=== PATIENT | female | born 1940 | race Caucasian/White ===

== ENCOUNTER 2018-08-30 08:37 | Inpatient (IN) | payer MEDICARE, MEDICAID ==
[2018-08-30 09:23] LABS: #Eosinphils 0.8 thou/uL (0.0-0.7); #Lymphocytes 2.1 thou/uL (1.20-3.40); #Neutrophils 7.7 thou/uL (1.40-6.50); %Basophils 0.3 % (0.0-1.0); %Monocytes 8.6 % (0.0-10.0); %Neutrophils 66.1 % (42.0-75.0); Hemoglobin 10.1 g/dL (12.0-16.0); Mean Corpuscular HGB CONC 33.9 g/dL (32.0-36.0); Mean Corpuscular Hemoglobin 30.8 pg (27.0-31.0); Mean Corpuscular Volume 90.7 fL (78.0-98.0); Mean Platelet Volume 6.3 fL (7.4-10.4); Platelet Count 272 thou/uL (130-400); RBC Distribution Width 11.9 % (11.5-14.5); Red Blood Cell (RBC) Count 3.27 mill/uL (4.20-5.40); White Blood Cell (WBC) Count 11.6 thou/uL (4.8-10.8)
[2018-08-30 09:43] LABS: ALT (SGPT) 12 U/L (8-55); AST (SGOT) 19 U/L (5-34); Albumin 3.7 g/dL (3.4-4.8); Alkaline Phosphatase 37 U/L (40-150); Anion Gap 18 mmol/L (10-20); BUN (Urea Nitrogen) 82 mg/dL (9.8-20.1); Bilirubin, Total 0.5 mg/dL (0.2-1.2); Calc. Creatinine Clearance 0 mL/min (70-130); Calcium 9.6 mg/dL (7.8-10.44); Carbon Dioxide 20 mmol/L (23-31); Chloride 106 mmol/L (98-107); Estimated GFR-MDRD 5; Globulin 3.8 g/dL (2.4-3.5); Glucose 94 mg/dL (83-110); Potassium 4.9 mmol/L (3.5-5.1); Protein, Total 7.5 g/dL (6.0-8.3); Sodium 139 mmol/L (136-145)
[2018-08-30] MEDS ORDERED: hydrALAZINE 20 MG/ML VIAL SLOW IVP PRN (11:07)
[2018-08-30] MEDS ORDERED: Acetaminophen 325 MG TAB PO PRN (11:07)
--- NOTE | 2018-08-30 11:34 | PDOC.FPRHP ---
- History of Present Illness Chief Complaint: needs shunt History of Present Illness: Patient was sent to the ED by Dr. Ponce to setup Shunt placement and initiation of hemodialyis. Patient had a L kidney which never adequately developed or functioned and was removed around age 37. Patient has reflux affecting the R kidney which eventually led to failure. Dr. ponce has been discussing dialysis with the patient for some time and she now decided she is ready to initiate. She is not intereted in peritoneal dialysis at this time. Patient denies recent illnesses. Denies fevers, chills, or sweats. No sob or cough. Patient states she has occasional malaise. She complains of mild L flank pain going on for a few days. Somewhat worse with movement, pain comes and goes. ED Course: Danish and Kris were contacted from the ED Dr. Danish balderas for shunt placement, venous mapping ordered - Allergies/Adverse Reactions Allergies Allergy/AdvReac Type Severity Reaction Status Date / Time shellfish derived Allergy Intermediate Short of Verified 08/30/18 16:54 Breath Iodine and Iodide Containing Allergy Short of Verified 08/30/18 16:54 Produc Breath - Home Medications Medication Instructions Recorded Confirmed Type Anastrozole [Arimidex] 1 mg PO DAILY 05/29/14 08/30/18 History Aspirin [Aspirin EC] 81 mg PO DAILY 05/29/14 08/30/18 History Esomeprazole Magnesium [NexIUM 20 mg PO DAILY 05/29/14 08/30/18 History 24Hr] Amlodipine [Norvasc] 10 mg PO DAILY 08/30/18 08/30/18 History Cyanocobalamin (Vitamin B-12) 1,000 mcg PO DAILY 08/30/18 08/30/18 History [B-12] Cyclobenzaprine HCl 5 mg PO PRN PRN 08/30/18 08/30/18 History Fenofibrate 150 mg PO DAILY 08/30/18 08/30/18 History Ferrous Gluconate [Iron] 240 mg PO DAILY 08/30/18 08/30/18 History Furosemide [Lasix] 20 mg PO DAILY 08/30/18 08/30/18 History Multivit-Min/Folic Acid/Vit K1 1 each PO DAILY 08/30/18 08/30/18 History [Multi For Her 50 Plus Softgel] Pravastatin Sodium 40 mg PO HS 08/30/18 08/30/18 History - History PMHx: hld, htn, breast cancer s/p chemo and mastectomy 2012, L kidney never developed PSHx: appy, mara, hyst, tonsillectomy, distant cath, L nephrectomy at age 37 FHx: DM, CHF, CVA Social: no smoking, alcohol, or drugs - Review of Systems General: denies: fever/chills, night sweats, fatigue ENT: denies: nasal congestion Respiratory: denies: cough, congestion, shortness of breath Cardiovascular: denies: chest pain, palpitation, edema Gastrointestinal: denies: nausea, vomiting, diarrhea, constipation, abdominal pain, GI bleeding Genitourinary: denies: dysuria, polyuria Skin: denies: rashes, itching Musculoskeletal: reports: other (no CVA tenderness, no pain with turning over in the bed). denies: pain Neurological: denies: numbness, seizure Psychological: denies: anxiety, depression - Vital signs BP: 170/85 HR: 93 RR: 15 Tmax: 98.0 Pox: 96% on RA Wt: 48 kg - Physical Exam Constitutional: NAD, awake, alert and oriented HEENT: normocephalic and atraumatic, EOMI Neck: supple Heart: RRR, normal S1/S2, no murmurs/rubs/gallops Lungs: CTAB, no respiratory distress, good air movement Abdomen: soft, non-tender, bowel sounds present Musculoskeletal: normal structure -Musculoskeletal: no CVA tenderness, no pain with moving L and R in the bed Neurological: no focal deficit, CN II-XII intact Skin: no rash/lesions, capillary refill <2 seconds FMR H&P: Results - Labs Result Diagrams: 08/30/18 09:15 08/30/18 09:15 Lab results: WBC 11.6 thou/uL (4.8-10.8) H 08/30/18 09:15 Hgb 10.1 g/dL (12.0-16.0) L 08/30/18 09:15 Hct 29.7 % (36.0-47.0) L 08/30/18 09:15 MCV 90.7 fL (78.0-98.0) 08/30/18 09:15 Plt Count 272 thou/uL (130-400) 08/30/18 09:15 Neutrophils % 66.1 % (42.0-75.0) 08/30/18 09:15 Sodium 139 mmol/L (136-145) 08/30/18 09:15 Potassium 4.9 mmol/L (3.5-5.1) 08/30/18 09:15 Chloride 106 mmol/L (98-107) 08/30/18 09:15 Carbon Dioxide 20 mmol/L (23-31) L 08/30/18 09:15 BUN 82 mg/dL (9.8-20.1) H 08/30/18 09:15 Creatinine 7.91 mg/dL (0.6-1.1) H 08/30/18 09:15 Glucose 94 mg/dL (83-110) 08/30/18 09:15 Calcium 9.6 mg/dL (7.8-10.44) 08/30/18 09:15 Total Bilirubin 0.5 mg/dL (0.2-1.2) 08/30/18 09:15 AST 19 U/L (5-34) 08/30/18 09:15 ALT 12 U/L (8-55) 08/30/18 09:15 Alkaline Phosphatase 37 U/L (40-150) L 08/30/18 09:15 Serum Total Protein 7.5 g/dL (6.0-8.3) 08/30/18 09:15 Albumin 3.7 g/dL (3.4-4.8) 08/30/18 09:15 FMR H&P: A/P - Problem List (1) ESRD (end stage renal disease) Current Visit: Yes Status: Acute Code(s): N18.6 - END STAGE RENAL DISEASE (2) HLD (hyperlipidemia) Current Visit: Yes Status: Acute Code(s): E78.5 - HYPERLIPIDEMIA, UNSPECIFIED (3) HTN (hypertension) Current Visit: Yes Status: Acute Code(s): I10 - ESSENTIAL (PRIMARY) HYPERTENSION (4) HX: breast cancer Current Visit: Yes Status: Acute Code(s): Z85.3 - PERSONAL HISTORY OF MALIGNANT NEOPLASM OF BREAST (5) History of nephrectomy, left Current Visit: Yes Status: Acute Code(s): Z90.5 - ACQUIRED ABSENCE OF KIDNEY (6) Hx of coronary artery disease Current Visit: Yes Status: Acute Code(s): Z86.79 - PERSONAL HISTORY OF OTHER DISEASES OF THE CIRCULATORY SYSTEM - Plan This is a 77 yo F admitted for shunt placement and initiation of hemodialysis # 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 Peng consulted for shunt placement, venous mapping ordered - Cr 7.9 in the Ed - initiate hemodialysis # HTN - cont amlodipine - PRN hydralazine - start lisinopril 5mg # HLD - pravastatin, fenofibrate # Hx of dCHF not in exacerbation, POA - EF 55-60% 2013 # hx CAD # Hx breast cancer - s/p chemo, mastectomy 2011 Diet: NPO until shunt placement Fluids: tko PPx: SCDs Code: DNR/DNI FMR H&P: Upper Level - Plan Date/Time: 08/30/18 0171 I, [], have evaluated this patient and agree with findings/plan as outlined by internal corrosion specialist resident. Pertinent changes/additions are listed here. Addendum - Attending - Attending Attestation Date/Time: 08/30/18 8249 I personally evaluated the patient and discussed the management with Dr. Barclay I agree with the History, Examination, Assessment and Plan documented above with any addition or exceptions noted below.
[2018-08-30 12:20] LABS: Magnesium 2.2 mg/dL (1.6-2.6); Phosphorus 7.6 mg/dL (2.3-4.7)
--- NOTE | 2018-08-30 12:50 | ULT ---
Exam: Vein mapping for dialysis access HISTORY: End-stage renal disease. TECHNIQUE: Multiplanar grayscale and color Doppler images were obtained in a bilateral upper extremit y venous ultrasound. Spectral analysis of the Doppler waveforms of the vessels were performed. FINDINGS: The bowel internal jugular veins and subclavian veins are patent without evidence of thromb us. Right brachial artery 4.4 mm Right radial artery 2.6 mm Right ulnar artery 1.7 mm Left brachial artery 4.4 mm Left radial artery 2.2 mm Left ulnar artery 0.8 mm RIGHT CEPHALIC VEIN in millimeters 2.6 -- Shoulder 2.7 -- Upper arm 3.6 -- Mid upper arm 3.4 -- Just proximal to the elbow 1.1 -- Just distal to the elbow 1.1 -- Forearm 1.2 -- Wrist RIGHT BASILIC VEIN in millimeters 3.7 -- Shoulder 1.9 -- Upper arm 2.3 -- Mid upper arm 3.0 -- Just proximal to the elbow 1.0 -- Just distal to the elbow 1.1 -- Forearm 0.6 -- Wrist LEFT CEPHALIC VEIN in millimeters 1.0 -- Shoulder 1.6 -- Upper arm 1.4 -- Mid upper arm 1.9 -- Just proximal to the elbow 1.3 -- Just distal to the elbow 1.1 -- Forearm 0.8 -- Wrist LEFT BASILIC VEIN in millimeters 2.1 -- Shoulder 1.2 -- Upper arm 1.6 -- Mid upper arm 1.2 -- Just proximal to the elbow 0.9 -- Just distal to the elbow 1.0 -- Forearm 0.6 -- Wrist IMPRESSION: Vein mapping for dialysis access as above
[2018-08-30] MEDS ORDERED: Tuberculin PPD 0.1 ML VIAL I-DERMAL SCH (13:00)
[2018-08-30 13:20] LABS: Hep B Core Total Ab Non-Reactive (NonReactive); Hep B Core Total Index 0.45 S/CO (0-0.79)
[2018-08-30 13:21] LABS: HBSAg Index 0.31 S/CO (0-0.99); Hep B Surf Ag Non-Reactive S/CO (NonReactive)
[2018-08-30 13:22] LABS: HBSAB Concentration 0.67 mIU/mL; Hep B Surf AB Non-Reactive (NonReactive)
[2018-08-30 13:23] LABS: Hep C IgG Ab Non-Reactive (NonReactive); Hep C Index 0.07 S/CO (0-0.79)
--- NOTE | 2018-08-30 16:09 | CON ---
DATE OF CONSULTATION: HISTORY OF PRESENT ILLNESS: Ms. 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 The patient has been having decreased appetite and decreased energy level. She has been advised to initiate dialysis several months ago, but has declined due to personal reasons. She is taking care of her , who is quite sick. We are being consulted for initiation of dialysis. We have already consulted Surgery for placement of a cuffed hemodialysis catheter as well as AV fistula. REVIEW OF SYSTEMS: Decreased appetite. Decreased energy level. Occasional nausea, but no vomiting. No diarrhea. No constipation. No productive cough. No fever or chills. No headache. No diplopia. Appetite is decreased. Energy level is decreased. No hematochezia. No melena. No tremors. MEDICATIONS: 1. Arimidex 1 mg daily. 2. Aspirin 81 mg tablet once a day. 3. Esomeprazole 20 mg daily. 4. Amlodipine 10 mg tablet daily. 5. Fenofibrate 150 mg daily. 6. Ferrous gluconate 240 mg once a day. 7. Pravastatin 40 mg tablet at bedtime. PAST MEDICAL HISTORY: 1. Breast cancer in remission. 2. 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 3. Hypertension. 4. Hyperlipidemia. 5. Chronic anemia. PAST SURGICAL HISTORY: Status post mastectomy, status post breast biopsy, status post left nephrectomy, status post tonsillectomy, status post appendectomy, status post hysterectomy, and status post cholecystectomy. SOCIAL HISTORY: The patient lives in [place]. , several children. No smoking. No alcohol intake. Sedentary lifestyle. Education, high school. No blood transfusion. ALLERGIES: NO KNOWN DRUG ALLERGIES. TRAUMA: None. IMMUNIZATION: Up-to-date. HOSPITALIZATIONS: Please see past medical history. FAMILY HISTORY: No family history of ESRD. PHYSICAL EXAMINATION: VITAL SIGNS: Blood pressure is noted at 170/85, heart rate 93, respiratory rate 15, T-max 98, and pulse ox 98%. GENERAL: Noted to be awake, alert, and comfortable, not in distress. The patient is obese. SKIN: Adequate turgor. HEENT: Slightly pale conjunctivae. Anicteric sclerae. NECK: No neck mass. No carotid bruits. No JVD. CHEST: No deformities. LUNGS: Clear breath sounds. No wheezing. No crackles. HEART: Normal sinus rhythm. No murmurs. No gallops. No rubs. ABDOMEN: Globular, soft, and nontender. No masses. EXTREMITIES: No edema. No deformities. NEUROLOGIC: Moving all extremities. No tremors or asterixis. No ataxia. Oriented to 3 spheres. LABORATORY DATA: Laboratories of August 30, 2018; sodium 139, potassium 4.9, chloride 106, carbon dioxide 20, BUN 82, and creatinine 7.91. White count 11.6, hemoglobin 10.1, and hematocrit 29.7. The patient's GFR is noted at 5 mL/minute. Albumin is 3.7. ASSESSMENT AND PLAN: 1. 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 GFR has dropped down to 6 mL/minute. I feel that this patient may be uremic. We will initiate hemodialysis. Surgical consult has been done with Dr. Peng for a cuffed hemodialysis catheter placement as well as AV fistula placement. Once the dialysis access is in place, we will initiate 1 hour hemodialysis today with this patient with subsequent daily dialysis with incremental increase in time by 1 hour until we reach 4 hours and then we will place her on 3 times a week dialysis. 2. Hypertension. Continue current BP medications. Adjust BP medications as needed. Thank you for the consult. We will continue to follow. Job ID: [id number]
[2018-08-30] MEDS ORDERED: CEFAZOLIN 2 GM in Premix Bag 1 BAG IVPB SCH (16:15)
--- NOTE | 2018-08-30 16:29 | PDOC.EVN ---
Event Note - Event Note Event Note: Patient states she had a heart cath in the last year with Dr. Dee but there are no records in [facility]
[2018-08-30 16:49] VITALS: BMI 31.2
--- NOTE | 2018-08-30 17:22 | HP ---
HISTORY OF PRESENT ILLNESS: A 77-year-old female, who has been followed by Dr. Ponce for some time for chronic kidney disease. She is status post left nephrectomy almost 40 years ago, atrophic kidney. She has progressed to need dialysis. I have been asked to see her regarding dialysis access. Plan is to place a hemodialysis catheter tomorrow as well as placement of a right arm dialysis fistula. She understands risks of infection, bleeding, reoperation, consents. TOBACCO: None. ALCOHOL: Rarely. ALLERGIES: NONE. MEDICATIONS: 1. Pravastatin. 2. Norvasc. 3. Ferrous gluconate. 4. Fenofibrate. 5. Nexium. 6. Aspirin. 7. Anastrozole. PAST MEDICAL HISTORY: End-stage renal disease, status post left nephrectomy, hypertension, history of breast cancer, chemotherapy. PAST SURGICAL HISTORY: Laparoscopic cholecystectomy, appendectomy, hysterectomy, bilateral salpingo-oophorectomy, tonsillectomy, nephrectomy 40 years ago, left rotator cough, colonoscopy in 2011, right breast cancer, status post bilateral mastectomy with right node dissection, partial thyroidectomy. REVIEW OF SYSTEMS: Noncontributory. PHYSICAL EXAMINATION: HEAD, EARS, EYES, NOSE, AND THROAT: Unremarkable. LUNGS: Clear to auscultation. CARDIAC: Regular rate and rhythm without murmur or gallop. ABDOMEN: Soft and nontender. Chest wall without breast, status post bilateral mastectomies. ABDOMEN: Soft and nontender. No masses. EXTREMITIES: Palpable radial pulses. No ankle edema. LABORATORY DATA: White count 11, hemoglobin 10.1. Sodium 139, potassium 4.9, creatinine 7.91, GFR 5. Liver function tests normal. ASSESSMENT AND PLAN: End-stage renal disease, status post left nephrectomy. We will plan for right arm primary fistula. Risks and benefits discussed. Questions have been answered. Possibility of a second operation necessity pending appearance of her veins and intraoperative findings discussed, questions answered. Job ID: [id number]
[2018-08-30] MEDS: Atorvastatin Calcium 10 MG TAB PO SCH (20:09)
[2018-08-31 05:24] LABS: Anion Gap 18 mmol/L (10-20); BUN (Urea Nitrogen) 85 mg/dL (9.8-20.1); Calc. Creatinine Clearance 7 mL/min (70-130); Calcium 9.2 mg/dL (7.8-10.44); Carbon Dioxide 17 mmol/L (23-31); Chloride 107 mmol/L (98-107); Estimated GFR-MDRD 5; Glucose 89 mg/dL (83-110); Potassium 4.3 mmol/L (3.5-5.1); Sodium 138 mmol/L (136-145)
--- NOTE | 2018-08-31 07:02 | PDOC.FM ---
- Subjective Subjective: This morning patient states she is feeling well overall. Slept well, somewhat cold bc thermostat in room is not working. No N/V/D overnight. Denies pain this AM. Reviewed surgery with her and what to expect, she has no further questions. - Objective Vital Signs & Weight: Vital Signs (12 hours) Temp Pulse Resp BP Pulse Ox 08/31/18 05:15 98.8 F 91 16 139/77 95 08/31/18 00:24 98.6 F 99 16 150/75 H 94 L 08/30/18 20:50 97.9 F 93 16 157/82 H 93 L Weight Weight 74.979 kg Result Diagrams: 08/30/18 09:15 08/31/18 04:04 Phys Exam - Physical Examination Constitutional: NAD HEENT: moist MMs, sclera anicteric Neck: no nodes Respiratory: no wheezing, clear to auscultation bilateral Cardiovascular: RRR, no significant murmur Gastrointestinal: soft, non-tender, positive bowel sounds Musculoskeletal: no edema, pulses present Neurological: non-focal, moves all 4 limbs Psychiatric: normal affect, A&O x 3 Skin: no rash, cap refill <2 seconds Dx/Plan (1) ESRD (end stage renal disease) Code(s): N18.6 - END STAGE RENAL DISEASE Status: Acute (2) HLD (hyperlipidemia) Code(s): E78.5 - HYPERLIPIDEMIA, UNSPECIFIED Status: Acute (3) HTN (hypertension) Code(s): I10 - ESSENTIAL (PRIMARY) HYPERTENSION Status: Acute (4) HX: breast cancer Code(s): Z85.3 - PERSONAL HISTORY OF MALIGNANT NEOPLASM OF BREAST Status: Acute (5) History of nephrectomy, left Code(s): Z90.5 - ACQUIRED ABSENCE OF KIDNEY Status: Acute (6) Hx of coronary artery disease Code(s): Z86.79 - PERSONAL HISTORY OF OTHER DISEASES OF THE CIRCULATORY SYSTEM Status: Acute - Plan Plan: This is a 77 yo F admitted for shunt placement and initiation of hemodialysis # 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 Peng consulted for shunt placement, fistula, today - Cr 7.9 in the Ed - initiate hemodialysis # HTN - cont amlodipine - PRN hydralazine - started lisinopril 5mg - dialysis should assist with htn as well # HLD - pravastatin, fenofibrate # Hx of dCHF not in exacerbation, POA - EF 55-60% 2013 # hx CAD - Cath with Dr. Dee Jul 2018 per patient - records not availabe in [facility] # Hx breast cancer - s/p chemo, mastectomy 2011 Diet: NPO, advance after surgery Fluids: tko PPx: SCDs Code: DNR/DNI Addendum - Attending - Attending Attestation Date/Time: 08/31/18 0808 I personally evaluated the patient and discussed the management with Dr. Barclay. I agree with the History, Examination, Assessment and Plan documented above with any addition or exceptions noted below. Patient reports feeling well this morning, awaiting surgery sometime today. She is going for catheter placement and AV fistula formation. Will initiate HD after those procedures. Labs stable. Further mgmt per Nephro recs. Will need CM on board for outpatient HD placement.
--- NOTE | 2018-08-31 09:26 | PRG ---
DATE OF SERVICE: 08/31/2018 SERVICE: Renal Medicine SUBJECTIVE: Ms. 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 Surgery has been consulted. The plan is to place AV fistula and cuffed dialysis catheter today. My plan is to dialyze her after placement of the dialysis catheter. Currently, no new complaints. No chest pain or shortness of breath. OBJECTIVE: VITAL SIGNS: Blood pressure 149/75, heart rate 94, respiratory rate 18, and temperature 98.3. GENERAL: Awake, alert, comfortable, not in overt distress. SKIN: Adequate turgor. HEENT: Slightly pale conjunctivae. Anicteric sclerae. NECK: NO neck mass. No carotid bruits. No JVD. CHEST: No deformities. LUNGS: Clear breath sounds. No wheezing. No crackles. HEART: Normal sinus rhythm. No murmur. No gallops. No rubs. ABDOMEN: Globular, soft, and nontender. No masses. EXTREMITIES: No edema. No deformities. MEDICATIONS: Medications of August 31, 2018, was reviewed. LABORATORY DATA: Laboratories of August 31, 2018; sodium 138, potassium 4.3, chloride 107, carbon dioxide 17, BUN 85, creatinine 7.73, GFR 5 mL/minute, calcium 9.2, phosphorus is 7.6, and magnesium is 2.2. Hemoglobin 10.1. ASSESSMENT AND PLAN: 1. Chronic renal failure/end-stage renal disease - we will initiate dialysis once the hemodialysis catheter is placed. As previously mentioned, we will do a daily dialysis with this patient. 2. Hyperphosphatemia - I will start this patient on Renvela 800 mg one tab t.i.d. 3. Hypertension, stable. Continue current antihypertensive regimen. Agree with current management. Job ID: [id number]
[2018-08-31] MEDS: Anastrozole 1 MG TAB PO SCH (10:04)
[2018-08-31] MEDS: Amlodipine 10 MG TAB PO SCH (10:04)
[2018-08-31] MEDS: Aspirin 81 mg Enteric Coated Tablet PO SCH (10:04)
[2018-08-31] MEDS: Fenofibrate Nanocrystallized 145 MG TAB PO SCH (10:05)
[2018-08-31] MEDS: Ferrous Gluconate 324 MG TAB PO SCH (10:05)
[2018-08-31] MEDS: Lisinopril 5 MG TAB PO SCH (10:05)
[2018-08-31] MEDS ORDERED: Heparin 10,000 UNITS/ 10 ML VIAL ONE ×2 (11:11→16:20)
[2018-08-31] MEDS ORDERED: Heparin 5,000 UNITS/ML VIAL ONE (11:14)
[2018-08-31] MEDS ORDERED: Lidocaine 2% PF 5 ML VIAL ONE (11:14)
[2018-08-31] MEDS ORDERED: Protamine Sulfate 50 MG/5 ML VIAL ONE (11:14)
[2018-08-31] MEDS ORDERED: Bupivacaine HCl 0.5%/Epinephrine 1:200,000/PF 30 ml Vial ONE ×2 (11:14→16:06)
[2018-08-31] MEDS ORDERED: Sodium Chloride 0.9% 30 ML ONE (11:19)
[2018-08-31] MEDS ORDERED: Heparin 10,000 UNITS/1 ML VIAL ONE (11:19)
[2018-08-31] MEDS ORDERED: Fentanyl 100 MCG/2 ML VIAL ONE (11:40)
[2018-08-31] MEDS ORDERED: Midazolam HCl 2 mg/2 ml Vial ONE (11:40)
[2018-08-31] MEDS ORDERED: Meperidine HCl/PF 25 MG/ML VIAL ONE (12:09)
[2018-08-31] MEDS ORDERED: traMADol HCl 50 MG TAB PO PRN (13:52)
[2018-08-31] MEDS ORDERED: Acetaminophen 500 MG TAB PO PRN (13:52)
--- NOTE | 2018-08-31 14:20 | RAD ---
CHEST 1 VIEW: COMPARISON: 05/29/2014. HISTORY: Presumed dialysis catheter placement. FINDINGS: Atherosclerosis of the aorta. Normal cardiac silhouette. The pulmonary vessels and hilum are normal . Costophrenic angles are clear. Diminished lung volumes, without consolidation or mass. No pneumot horax or osseous abnormalities. Interval placement of right-sided HemoSplit dialysis catheter with the distal tip projecting over the superior vena cava. IMPRESSION: Interval placement of a right-sided HemoSplit dialysis catheter. No pneumothorax. POS: [facility]
--- NOTE | 2018-08-31 14:54 | OP ---
DATE OF PROCEDURE: 08/31/2018 PREOPERATIVE DIAGNOSES: Obesity, end-stage renal disease. POSTOPERATIVE DIAGNOSES: Obesity, end-stage renal disease. PROCEDURES PERFORMED: Right internal jugular cuffed tunneled hemodialysis catheter, ultrasound and fluoroscopy use, and exploration of the right wrist. FINDINGS: The cephalic vein inadequate, wound closed. Primary AV fistula, right arm. Proximal radial artery inflow-outflow through the perforating branch of the antecubital vein, primary to the cephalic vein, secondary to basilic vein with retrograde antecubital vein preserved. The cephalic vein outflow, upper arm calibrated to 4 mm coronary dilator passing without obstruction. ANESTHESIA: TIVA, local of 0.5% Marcaine with epinephrine 30 mL mixed with 2% Xylocaine 10 mL, regional, right arm. DESCRIPTION OF PROCEDURE: The patient was taken to the operating room, where under regional anesthesia and intravenous sedation, neck, chest, and right arm prepared with ChloraPrep and draped in routine fashion. Ultrasound guidance was used to cannulate the right internal jugular vein with trocar catheter, J-wire threaded, trocar catheter removed. Skin site was enlarged sharply. Stab incision over the right chest made for the exit site catheter, and a pre-curved [employer] cuffed-tunneled hemodialysis catheter tunneled between 2 incisions, placed the fabric cuff beneath the skin exit site. Catheter was secured with 2 sutures of 3-0 nylon. Sterile dressing applied. Small- and medium-sized dilators were placed over the J-wire and the internal jugular vein removed. Dilator and Peel-Away sheath placed with J-wire in superior vena cava, and dilator and J-wire were removed. Catheter was placed through the Peel-Away sheath. The Peel-Away sheath removed. Platysma was approximated with 4-0 Monocryl, skin with subdermal 4-0 Monocryl and [place] glue and sterile dressings applied. Fluoroscopic images revealed the catheter to be in good position and each port aspirated blood, flushed with saline solution, and heparinized saline solution with 1000 units of heparin per mL indicating volume of the port. Incision was made in the right wrist, and cephalic vein at the wrist was inadequate. This incision closed with interrupted sutures of 4-0 Monocryl. Incision was made longitudinally in the proximal volar forearm just below the antecubital fossa, carried down to skin and subcutaneous tissue, and a good-sized antecubital vein and outflow cephalic and basilic vein appreciated. Cephalic vein was larger. Perforating branch of the antecubital vein dissected free and branches were divided between clips, spatulated, and interrogated with coronary dilators, passing coronary dilators from a 2 mm to 4 mm coronary dilator, unobstructed out of the cephalic vein outflow. The patient was given 6000 units of heparin intravenously. After adequate circulation time, the brachial, ulnar, and radial arteries clamped, and a longitudinal arteriotomy was made in the proximal radial artery for 2.5 cm anastomosis elongated with Haq scissors and vein accordingly spatulated to accommodate this, and end vein to side proximal radial artery anastomosis created with continuous suture of 6-0 Prolene, completing anastomosis and hemostasis with 6-0 Prolene, releasing vascular control, noting a good Doppler signal in the cephalic vein outflow, upper arm. Good hemostasis was noted. The patient given 25 mg of protamine intravenously by Anesthesia. Subcutaneous tissue was approximated with 3-0 Monocryl, skin with subdermal 4-0 Monocryl, and [place] glue applied. Job ID: [id number]
[2018-08-31] MEDS: Sevelamer Carbonate 800 MG TAB PO SCH ×3 (15:58→19:06)
[2018-08-31] MEDS ORDERED: Lidocaine 1% PF 5 ML VIAL ONE (16:20)
[2018-08-31] MEDS ORDERED: PROPOFOL 200 MG/20 ML VIAL ONE (16:20)
[2018-08-31] MEDS: Atorvastatin Calcium 10 MG TAB PO SCH (21:28)
[2018-09-01] MEDS: traMADol HCl 50 MG TAB PO PRN (00:49)
--- NOTE | 2018-09-01 06:30 | PDOC.FM ---
- Subjective Subjective: Patient states she is feeling well today. Did have an episode of vomiting after dialysis yesterday, did one hour. Anticipate daily dialysis for now while establishing. No other complaints. Tolerating PO, no fevers, chills, sweats, N/V /D, cough or SOB. - Objective Vital Signs & Weight: Vital Signs (12 hours) Temp Pulse Resp BP Pulse Ox 09/01/18 04:00 98.8 F 97 18 135/74 95 09/01/18 00:00 98.5 F 103 H 20 150/67 H 95 08/31/18 20:00 98.0 F 100 20 146/77 H 96 Weight Weight 74.979 kg I&O: 08/30/18 08/31/18 09/01/18 06:59 06:59 06:59 Intake Total 480 Balance 480 Result Diagrams: 08/30/18 09:15 08/31/18 04:04 Phys Exam - Physical Examination Constitutional: NAD HEENT: moist MMs, sclera anicteric Respiratory: no wheezing, clear to auscultation bilateral Cardiovascular: RRR, no significant murmur, no rub Gastrointestinal: soft, non-tender, no distention, positive bowel sounds Musculoskeletal: no edema, pulses present Neurological: non-focal, moves all 4 limbs Psychiatric: normal affect, A&O x 3 Skin: no rash, cap refill <2 seconds Deviation from normal: fistula site healing well, no sign of infxn Dx/Plan (1) ESRD (end stage renal disease) Code(s): N18.6 - END STAGE RENAL DISEASE Status: Acute (2) HLD (hyperlipidemia) Code(s): E78.5 - HYPERLIPIDEMIA, UNSPECIFIED Status: Acute (3) HTN (hypertension) Code(s): I10 - ESSENTIAL (PRIMARY) HYPERTENSION Status: Acute (4) HX: breast cancer Code(s): Z85.3 - PERSONAL HISTORY OF MALIGNANT NEOPLASM OF BREAST Status: Acute (5) History of nephrectomy, left Code(s): Z90.5 - ACQUIRED ABSENCE OF KIDNEY Status: Acute (6) Hx of coronary artery disease Code(s): Z86.79 - PERSONAL HISTORY OF OTHER DISEASES OF THE CIRCULATORY SYSTEM Status: Acute - Plan Plan: This is a 77 yo F admitted for shunt placement and initiation of hemodialysis # 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 Peng consulted for shunt placement, fistula 08/31 - Cr 7.9 in the Ed - had 1 hr dialysis yesterday, anticipate daily dialysis for now - appreciate nephro recs # HTN - cont amlodipine - PRN hydralazine - started lisinopril 5mg - dialysis should assist with htn as well, will hold off titration for now # HLD - pravastatin, fenofibrate # Hx of dCHF not in exacerbation, POA - EF 55-60% 2013 # hx CAD - Cath with Dr. Dee Jul 2018 per patient - records not availabe in [facility] # Hx breast cancer - s/p chemo, mastectomy 2011 Diet: NPO, advance after surgery Fluids: tko PPx: SCDs Code: DNR/DNI Dispo: 1-2 days pending placement, dialysis, Nephro recs Addendum - Attending - Attending Attestation Date/Time: 09/01/18 0808 I personally evaluated the patient and discussed the management with Dr. Barclay. I agree with the History, Examination, Assessment and Plan documented above with any addition or exceptions noted below. Patient overall stable. SHe underwent first HD session yesterday and reports it went well. Has some soreness from surgery yesterday that is well controlled. Continue HD per Nephro recs and work on outpatient placement.
[2018-09-01] MEDS: Sevelamer Carbonate 800 MG TAB PO SCH ×3 (09:36→18:23)
--- NOTE | 2018-09-01 09:36 | PRG ---
DATE OF SERVICE: 09/01/2018 SUBJECTIVE: Ms. Canales is a 77-year-old white female, who was initiated on hemodialysis due to progressive azotemia/uremia. She underwent a 1 hour dialysis yesterday and tolerated said treatment. She has a cuffed dialysis catheter and AV fistula placed. No other complaints today. No chest pain or shortness of breath. OBJECTIVE: VITAL SIGNS: Blood pressure 152/77, heart rate 83, respiratory rate 16, temperature 98.6, and pulse ox 98%. GENERAL: Noted to be awake, alert, supine, comfortable, not in distress. SKIN: Adequate turgor. HEENT: She has a slightly pale conjunctivae. Anicteric sclerae. NECK: No neck mass. No carotid bruits. No JVD. CHEST: No deformities. LUNGS: Clear breath sounds. HEART: Normal sinus rhythm. No murmur. No gallops. No rubs. ABDOMEN: Globular soft, nontender. No masses. EXTREMITIES: No edema. No deformities. MEDICATIONS: Medications of September 01, 2018, reviewed. LABORATORY DATA: Laboratories of August 30, 2018; white count 11.6, hemoglobin 10.1. On August 31, 2018, sodium 138, potassium 4.3, chloride 107, carbon dioxide 17, BUN 85, creatinine 7.73, calcium 9.3. ASSESSMENT AND PLAN: 1. Hyperphosphatemia-Renvela has been initiated with the patient, 800 mg one tablet t.i.d. with meals. 2. Borderline anemia. We will continue to observe. Currently, on ferrous sulfate. 3. 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 The patient is scheduled for another dialysis session today. My plan is to at least do a 2-hour dialysis with this patient. Overall, agree with current management. The patient is doing well. Job ID: [id number]
[2018-09-01] MEDS: Amlodipine 10 MG TAB PO SCH (10:58)
[2018-09-01] MEDS: Ferrous Gluconate 324 MG TAB PO SCH (10:58)
[2018-09-01] MEDS: Fenofibrate Nanocrystallized 145 MG TAB PO SCH (10:58)
[2018-09-01] MEDS: Anastrozole 1 MG TAB PO SCH (10:58)
[2018-09-01] MEDS: Aspirin 81 mg Enteric Coated Tablet PO SCH (10:58)
[2018-09-01] MEDS: Lisinopril 5 MG TAB PO SCH (10:59)
[2018-09-01] MEDS: READ PPD TEST SITE PO SCH (15:34)
--- NOTE | 2018-09-01 15:39 | PRG ---
DATE OF SERVICE: 09/01/2018 Ms. Canales is doing well after formation 08/31/2018, right arm fistula, proximal radial artery outflow, cephalic and basilic vein, cephalic primarily. She has good thrill and bruit in her fistula. Her surgical wound looks good. Her hemodialysis catheter is functioning well. I have encouraged her to use the right arm unrestricted. She should see me in my office in 2 to 3 weeks. At this point, I will see her as needed this hospitalization. Please call as necessary. Job ID: [id number]
[2018-09-01] MEDS ORDERED: Heparin 10,000 UNITS/ 10 ML VIAL ONE (18:00)
[2018-09-01] MEDS ORDERED: Calcium Carbonate 500 MG ChewTAB PO PRN (20:06)
[2018-09-01] MEDS: Atorvastatin Calcium 10 MG TAB PO SCH (20:40)
[2018-09-02] MEDS ORDERED: Calcium Carbonate 500 MG ChewTAB PO PRN (03:45)
[2018-09-02 06:34] LABS: #Eosinphils 0.5 thou/uL (0.0-0.7); #Neutrophils 7.1 thou/uL (1.40-6.50); %Basophils 0.3 % (0.0-1.0); %Eosinophils 5.2 % (0.0-10.0); %Lymphocytes 18.7 % (21.0-51.0); %Monocytes 9.3 % (0.0-10.0); %Neutrophils 66.5 % (42.0-75.0); Hemoglobin 8.8 g/dL (12.0-16.0); Mean Corpuscular HGB CONC 33.4 g/dL (32.0-36.0); Mean Corpuscular Hemoglobin 30.8 pg (27.0-31.0); Mean Corpuscular Volume 92.3 fL (78.0-98.0); Mean Platelet Volume 6.9 fL (7.4-10.4); Platelet Count 237 thou/uL (130-400); RBC Distribution Width 11.9 % (11.5-14.5); Red Blood Cell (RBC) Count 2.85 mill/uL (4.20-5.40); White Blood Cell (WBC) Count 10.6 thou/uL (4.8-10.8)
--- NOTE | 2018-09-02 06:55 | PDOC.FM ---
- Subjective Subjective: This morning patient states she is feeling well. Had mild nausea after dialysis yesterday, resolved with TUMS. Rec'd zofran as needed. Planning on 3 hours of dialysis today. Denies pain, lightheadedness, or decreased appetite. - Objective Vital Signs & Weight: Vital Signs (12 hours) Temp Pulse Resp BP Pulse Ox 09/01/18 20:00 95 09/01/18 19:14 98.2 F 89 16 153/74 H 95 Weight Weight 74.979 kg I&O: 08/31/18 09/01/18 09/02/18 06:59 06:59 06:59 Intake Total 480 600 Balance 480 600 Result Diagrams: 09/02/18 05:50 09/02/18 05:50 Phys Exam - Physical Examination Constitutional: NAD HEENT: PERRLA, moist MMs Respiratory: no wheezing, clear to auscultation bilateral Cardiovascular: RRR, no significant murmur, no rub Gastrointestinal: soft, non-tender, no distention, positive bowel sounds Musculoskeletal: no edema, pulses present Neurological: non-focal, moves all 4 limbs Psychiatric: normal affect, A&O x 3 Skin: no rash, cap refill <2 seconds Dx/Plan (1) ESRD (end stage renal disease) Code(s): N18.6 - END STAGE RENAL DISEASE Status: Acute (2) HLD (hyperlipidemia) Code(s): E78.5 - HYPERLIPIDEMIA, UNSPECIFIED Status: Acute (3) HTN (hypertension) Code(s): I10 - ESSENTIAL (PRIMARY) HYPERTENSION Status: Acute (4) HX: breast cancer Code(s): Z85.3 - PERSONAL HISTORY OF MALIGNANT NEOPLASM OF BREAST Status: Acute (5) History of nephrectomy, left Code(s): Z90.5 - ACQUIRED ABSENCE OF KIDNEY Status: Acute (6) Hx of coronary artery disease Code(s): Z86.79 - PERSONAL HISTORY OF OTHER DISEASES OF THE CIRCULATORY SYSTEM Status: Acute - Plan Plan: This is a 77 yo F admitted for shunt placement and initiation of hemodialysis # 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 Peng consulted for shunt placement, fistula 08/31 - renvela started for hyperphosphatemia - titrating up on dialysis, 3 hrs today - appreciate nephro recs # HTN - cont amlodipine, titrated up to 10mg on lisinopril - PRN hydralazine # HLD - pravastatin, fenofibrate # Hx of dCHF not in exacerbation, POA - EF 55-60% 2013 # hx CAD - Cath with Dr. Dee Jul 2018 per patient - records not availabe in [facility] # Hx breast cancer - s/p chemo, mastectomy 2011 Diet: renal Fluids: tko PPx: SCDs Code: DNR/DNI Dispo: 1-2 days pending placement, Nephro recs Addendum - Attending - Attending Attestation Date/Time: 09/02/18 6615 I personally evaluated the patient and discussed the management with Dr. Barclay. I agree with the History, Examination, Assessment and Plan documented above with any addition or exceptions noted below. Patient doing well and tolerating dialysis well. Awaiting outpatient HD set up and further nephro recs. Labs overall stable.
[2018-09-02 06:57] LABS: Anion Gap 14 mmol/L (10-20); BUN (Urea Nitrogen) 41 mg/dL (9.8-20.1); Calc. Creatinine Clearance 10 mL/min (70-130); Calcium 9.8 mg/dL (7.8-10.44); Carbon Dioxide 27 mmol/L (23-31); Chloride 101 mmol/L (98-107); Estimated GFR-MDRD 7; Glucose 92 mg/dL (83-110); Potassium 4.1 mmol/L (3.5-5.1); Sodium 138 mmol/L (136-145)
[2018-09-02] MEDS: Ferrous Gluconate 324 MG TAB PO SCH (08:42)
[2018-09-02] MEDS: Fenofibrate Nanocrystallized 145 MG TAB PO SCH (08:42)
[2018-09-02] MEDS: Sevelamer Carbonate 800 MG TAB PO SCH ×3 (08:42→17:33)
[2018-09-02] MEDS: Lisinopril 10 MG TAB PO SCH (08:42)
[2018-09-02] MEDS: Anastrozole 1 MG TAB PO SCH (08:42)
[2018-09-02] MEDS: Amlodipine 10 MG TAB PO SCH (08:42)
[2018-09-02] MEDS: Aspirin 81 mg Enteric Coated Tablet PO SCH (08:42)
[2018-09-02] MEDS ORDERED: Epoetin (ESRD) 20,000 UNITS/ML SC SCH (09:00)
--- NOTE | 2018-09-02 09:11 | PRG ---
DATE OF SERVICE: 09/02/2018 SUBJECTIVE: Ms. Canales is a 77-year-old white female with chronic renal failure, admitted for uremic signs and symptoms, and progressive azotemia. She is undergoing dialysis today. She is tolerating said treatment. No new complaints. No chest pain or shortness of breath. OBJECTIVE: VITAL SIGNS: Blood pressure 172/76, heart rate 104, respiratory rate 18, temperature 98.6, and pulse ox 93%. GENERAL: Awake, alert, comfortable, not in distress. SKIN: Adequate turgor HEENT she has slightly pale conjunctivae. Anicteric sclerae. No neck mass. No carotid bruits. No JVD. CHEST: No deformities lungs clear breath sounds heart normal sinus rhythm. No murmurs, gallops, or rubs. ABDOMEN: Globular, soft, nontender. No masses. EXTREMITIES: No edema. No deformities. MEDICATIONS: Medications of September 02, 2018, was reviewed. LABORATORY DATA: On September 02, 2018, hemoglobin 8.8. Sodium 138 potassium 4.1, chloride 101, carbon dioxide 27, BUN 41, creatinine 5.64, GFR 7 mL/minute calcium is 9.8. ASSESSMENT AND PLAN: 1. Chronic renal failure/end-stage renal disease stable we will continue current daily hemodialysis. I am doing a 3-hour hemodialysis with this patient. She is seems to be tolerating the said treatment. Fluid removal only as tolerated. 2. Anemia. We will start Epogen 7500 units subcu weekly. Continue ferrous sulfate. 3. Awaiting outpatient dialysis placement. Job ID: [id number]
[2018-09-02] MEDS ORDERED: Heparin 10,000 UNITS/ 10 ML VIAL ONE (10:00)
[2018-09-02] MEDS: Ondansetron ODT 4 MG TAB PO PRN (15:21)
[2018-09-02] MEDS: READ PPD TEST SITE PO SCH (17:33)
[2018-09-02] MEDS: Atorvastatin Calcium 10 MG TAB PO SCH (21:20)
[2018-09-02] MEDS: traMADol HCl 50 MG TAB PO PRN (21:35)
--- NOTE | 2018-09-03 05:48 | PDOC.FM ---
- Subjective Subjective: Patient feeling well this morning. Still having some nausea after dialysis. Has R arm numbness which resolves with movment. No deficit or decreased sensation. - Objective Vital Signs & Weight: Vital Signs (12 hours) Temp Pulse Resp BP Pulse Ox 09/02/18 20:00 98.4 F 93 16 155/73 H 96 Weight Weight 74.979 kg I&O: 09/01/18 09/02/18 09/03/18 06:59 06:59 06:59 Intake Total 480 600 420 Balance 480 600 420 Result Diagrams: 09/03/18 08:42 09/03/18 08:42 Phys Exam - Physical Examination Constitutional: NAD HEENT: moist MMs, sclera anicteric Respiratory: no wheezing, clear to auscultation bilateral Cardiovascular: RRR, no significant murmur, no rub Gastrointestinal: soft, non-tender, no distention, positive bowel sounds Musculoskeletal: no edema, pulses present Neurological: non-focal, moves all 4 limbs Psychiatric: normal affect, A&O x 3 Skin: no rash, cap refill <2 seconds Dx/Plan (1) ESRD (end stage renal disease) Code(s): N18.6 - END STAGE RENAL DISEASE Status: Acute (2) HLD (hyperlipidemia) Code(s): E78.5 - HYPERLIPIDEMIA, UNSPECIFIED Status: Acute (3) HTN (hypertension) Code(s): I10 - ESSENTIAL (PRIMARY) HYPERTENSION Status: Acute (4) HX: breast cancer Code(s): Z85.3 - PERSONAL HISTORY OF MALIGNANT NEOPLASM OF BREAST Status: Acute (5) History of nephrectomy, left Code(s): Z90.5 - ACQUIRED ABSENCE OF KIDNEY Status: Acute (6) Hx of coronary artery disease Code(s): Z86.79 - PERSONAL HISTORY OF OTHER DISEASES OF THE CIRCULATORY SYSTEM Status: Acute - Plan Plan: This is a 77 yo F admitted for shunt placement and initiation of hemodialysis # 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 Peng consulted for shunt placement, fistula 08/31 - renvela started for hyperphosphatemia - titrating up on dialysis, 4 hrs today - appreciate nephro recs # HTN - cont amlodipine, titrated up to 10mg on lisinopril 09/02 - PRN hydralazine # HLD - pravastatin, fenofibrate # Hx of dCHF not in exacerbation, POA - EF 55-60% 2013 # hx CAD - Cath with Dr. Dee Jul 2018 per patient - records not availabe in [facility] # Hx breast cancer - s/p chemo, mastectomy 2011 Diet: renal Fluids: tko PPx: SCDs Code: DNR/DNI Dispo: pending dialysis placement in [place] Addendum - Attending - Attending Attestation Date/Time: 09/03/18 1204 I personally evaluated the patient and discussed the management with Dr. Marty Barclay I agree with the History, Examination, Assessment and Plan documented above with any addition or exceptions noted below.
--- NOTE | 2018-09-03 08:53 | PRG ---
DATE OF SERVICE: 09/03/2018 SERVICE: Renal Medicine. SUBJECTIVE: Ms. Canales is a 77-year-old white female, who was admitted for progressive azotemia and due to uremic signs and symptoms. Hemodialysis has been initiated. She is tolerating the said dialysis regimen. I am at the bedside today supervising her dialysis. My plan is to do a 3-1/2 hour hemodialysis treatment with her. We will then place her starting next week at 3 times a week hemodialysis. In addition, in the interim, she had a right upper AV fistula placed by Dr. Peng. She has also a cuffed hemodialysis catheter. The patient voices no new complaints today. Denies any chest pain or shortness of breath. The only thing she makes mention is some mild numbness on the right hand, which is expected after placement of her AV fistula. OBJECTIVE: VITAL SIGNS: Blood pressure 122/83, heart rate 93, respiratory rate 18, temperature 98.4, and pulse ox 96%. GENERAL: Awake, alert, comfortable, not in overt distress. SKIN: Adequate turgor. HEENT: She has a slightly pale conjunctivae. Anicteric sclerae. NECK: No neck mass. No carotid bruits. No JVD. CHEST: No deformities. LUNGS: Clear breath sounds. No wheezing. No crackles. HEART: Normal sinus rhythm. No murmur. No gallops. No rubs. ABDOMEN: Globular, soft, and nontender. No masses. EXTREMITIES: No edema. No deformities. MEDICATIONS: Medications of September 03, 2018, reviewed. LABORATORY DATA: laboratories of September 02, 2018; white count 10.6, hemoglobin 8.8, hematocrit 26.4. Sodium 138, potassium 4.1, chloride 101, carbon dioxide 27, BUN 41, creatinine 5.64, glucose 92, and calcium 9.8. ASSESSMENT AND PLAN: 1. Chronic renal failure/end-stage renal disease. Hemodialysis today for 3-1/2 hours. Fluid removal as tolerated. We will plan then to place her next week at three times a week hemodialysis. Awaiting outpatient dialysis placement. 2. Anemia. We recently started her on Epogen. Continue iron supplementation. P.r.n. blood transfusion for hemoglobin of less than 7. We will be rechecking a CBC and basic metabolic panel today. Overall, agree with current management. Job ID: [id number]
[2018-09-03] MEDS: Sevelamer Carbonate 800 MG TAB PO SCH ×3 (10:15→17:38)
[2018-09-03 11:37] LABS: #Basophils 0.1 thou/uL (0.0-0.2); #Eosinphils 0.5 thou/uL (0.0-0.7); #Lymphocytes 1.7 thou/uL (1.20-3.40); #Neutrophils 12.2 thou/uL (1.40-6.50); %Basophils 0.4 % (0.0-1.0); %Eosinophils 3.4 % (0.0-10.0); %Lymphocytes 11.1 % (21.0-51.0); %Monocytes 6.4 % (0.0-10.0); %Neutrophils 78.8 % (42.0-75.0); Hemoglobin 8.7 g/dL (12.0-16.0); Mean Corpuscular HGB CONC 33.4 g/dL (32.0-36.0); Mean Corpuscular Hemoglobin 30.9 pg (27.0-31.0); Mean Corpuscular Volume 92.4 fL (78.0-98.0); Mean Platelet Volume 7.1 fL (7.4-10.4); Platelet Count 233 thou/uL (130-400); RBC Distribution Width 12.1 % (11.5-14.5); White Blood Cell (WBC) Count 15.5 thou/uL (4.8-10.8)
[2018-09-03 11:58] LABS: BUN (Urea Nitrogen) 28 mg/dL (9.8-20.1); Calc. Creatinine Clearance 11 mL/min (70-130); Calcium 9.2 mg/dL (7.8-10.44); Carbon Dioxide 28 mmol/L (23-31); Chloride 98 mmol/L (98-107); Estimated GFR-MDRD 9; Glucose 101 mg/dL (83-110); Potassium 3.4 mmol/L (3.5-5.1); Sodium 136 mmol/L (136-145)
[2018-09-03 12:00] LABS: Anion Gap 13 mmol/L (10-20)
[2018-09-03] MEDS: Anastrozole 1 MG TAB PO SCH (13:05)
[2018-09-03] MEDS: Ferrous Gluconate 324 MG TAB PO SCH (13:05)
[2018-09-03] MEDS: Fenofibrate Nanocrystallized 145 MG TAB PO SCH (13:05)
[2018-09-03] MEDS: Lisinopril 10 MG TAB PO SCH (13:05)
[2018-09-03] MEDS: Aspirin 81 mg Enteric Coated Tablet PO SCH (13:06)
[2018-09-03] MEDS: Amlodipine 10 MG TAB PO SCH (13:06)
[2018-09-03] MEDS ORDERED: Heparin 10,000 UNITS/ 10 ML VIAL ONE (18:00)
[2018-09-03] MEDS: Atorvastatin Calcium 10 MG TAB PO SCH (20:53)
[2018-09-03] MEDS: traMADol HCl 50 MG TAB PO PRN (21:00)
--- NOTE | 2018-09-03 21:46 | EKG ---
Test Reason : Blood Pressure : / mmHG Vent. Rate : 088 BPM Atrial Rate : 088 BPM P-R Int : 174 ms QRS Dur : 076 ms QT Int : 386 ms P-R-T Axes : 015 030 054 degrees QTc Int : 467 ms Normal sinus rhythm Normal ECG Confirmed by MARILYN WHITE ([id number]), photography editor LUIS DAMON ([id number]) on 09/03/2018 9:46:18 PM Referred By: Confirmed By:MARILYN WHITE
--- NOTE | 2018-09-04 07:22 | PDOC.FM ---
- Subjective Subjective: This moring patient states she is feeling well. She slept well overnight, no sob or cough. She states jacquelin is helping quite a bit with nausea related to dialysis. Tolerated 3.5 hours yesterday without issues. She is still having numbness and tingling in the right arm which comes and goes. NO pain, weakness, or difference in sensation as compared to the L. - Objective Vital Signs & Weight: Vital Signs (12 hours) Pulse Ox 09/03/18 19:41 93 L Weight Weight 74.979 kg I&O: 09/03/18 09/04/18 09/05/18 06:59 06:59 06:59 Intake Total 420 490 Balance 420 490 Result Diagrams: 09/03/18 08:42 09/03/18 08:42 Phys Exam - Physical Examination Constitutional: NAD HEENT: moist MMs, sclera anicteric Respiratory: no wheezing, clear to auscultation bilateral Cardiovascular: RRR, no significant murmur Gastrointestinal: soft, non-tender, no distention, positive bowel sounds Musculoskeletal: no edema, pulses present Neurological: non-focal, moves all 4 limbs Psychiatric: normal affect, A&O x 3 Skin: no rash, cap refill <2 seconds Dx/Plan (1) ESRD (end stage renal disease) Code(s): N18.6 - END STAGE RENAL DISEASE Status: Acute (2) HLD (hyperlipidemia) Code(s): E78.5 - HYPERLIPIDEMIA, UNSPECIFIED Status: Acute (3) HTN (hypertension) Code(s): I10 - ESSENTIAL (PRIMARY) HYPERTENSION Status: Acute (4) HX: breast cancer Code(s): Z85.3 - PERSONAL HISTORY OF MALIGNANT NEOPLASM OF BREAST Status: Acute (5) History of nephrectomy, left Code(s): Z90.5 - ACQUIRED ABSENCE OF KIDNEY Status: Acute (6) Hx of coronary artery disease Code(s): Z86.79 - PERSONAL HISTORY OF OTHER DISEASES OF THE CIRCULATORY SYSTEM Status: Acute - Plan Plan: This is a 77 yo F admitted for shunt placement and initiation of hemodialysis # 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 Peng consulted for shunt placement, fistula 08/31 - renvela started for hyperphosphatemia - titrating up on dialysis - appreciate nephro recs # HTN - cont amlodipine, titrated up to 10mg on lisinopril 09/02 - PRN hydralazine - BP WNL this AM # HLD - pravastatin, fenofibrate # Hx of dCHF not in exacerbation, POA - EF 55-60% 2013 # hx CAD - Cath with Dr. Dee Jul 2018 per patient - records not availabe in [facility] # Hx breast cancer - s/p chemo, mastectomy 2011 Diet: renal Fluids: tko PPx: SCDs Code: DNR/DNI Dispo: pending dialysis placement in [place] [facility] Progress Note: A/P - Problems (1) ESRD (end stage renal disease) Current Visit: Yes Status: Acute Code(s): N18.6 - END STAGE RENAL DISEASE (2) HLD (hyperlipidemia) Current Visit: Yes Status: Acute Code(s): E78.5 - HYPERLIPIDEMIA, UNSPECIFIED (3) HTN (hypertension) Current Visit: Yes Status: Acute Code(s): I10 - ESSENTIAL (PRIMARY) HYPERTENSION (4) HX: breast cancer Current Visit: Yes Status: Acute Code(s): Z85.3 - PERSONAL HISTORY OF MALIGNANT NEOPLASM OF BREAST (5) History of nephrectomy, left Current Visit: Yes Status: Acute Code(s): Z90.5 - ACQUIRED ABSENCE OF KIDNEY (6) Hx of coronary artery disease Current Visit: Yes Status: Acute Code(s): Z86.79 - PERSONAL HISTORY OF OTHER DISEASES OF THE CIRCULATORY SYSTEM Addendum - Attending - Attending Attestation Date/Time: 09/04/18 1501 I personally evaluated the patient and discussed the management with Dr. Karon Barclay I agree with the History, Examination, Assessment and Plan documented above with any addition or exceptions noted below. Awaiting Dialysis chair placement.
[2018-09-04] MEDS: Anastrozole 1 MG TAB PO SCH (07:37)
[2018-09-04] MEDS: Aspirin 81 mg Enteric Coated Tablet PO SCH (07:38)
[2018-09-04] MEDS: Sevelamer Carbonate 800 MG TAB PO SCH ×3 (07:38→17:13)
[2018-09-04] MEDS: Fenofibrate Nanocrystallized 145 MG TAB PO SCH (07:38)
[2018-09-04] MEDS: Lisinopril 10 MG TAB PO SCH (07:38)
[2018-09-04] MEDS: Ferrous Gluconate 324 MG TAB PO SCH (07:39)
[2018-09-04] MEDS: Amlodipine 10 MG TAB PO SCH (07:39)
--- NOTE | 2018-09-04 13:32 | PRG ---
DATE OF SERVICE: Rita Canales is doing well after right arm fistula. She has a small hematoma as it is common after this operation. No surgical intervention is warranted. She complains of intermittent paresthesias of her fingertips. She has good hand strength, good mobility of her hand. Her fingers are warm. There is good thrill and bruit in her fistula. At present, there is no indication for any complications. Gabapentin could be used. The paresthesias will resolve with time. The fact that they are intermitted is very encouraging. There is no evidence of . The patient should exercise the right arm, use it without restriction and follow up in my office in 2 to 3 weeks. Job ID: [id number]
[2018-09-04] MEDS: Atorvastatin Calcium 10 MG TAB PO SCH (20:30)
--- NOTE | 2018-09-05 08:24 | PDOC.FM ---
- Subjective Subjective: This morning patient states her R arm pain is somewhat improved. Gets better with movement. She feels some nausea this AM but was still able to eat most of her breakfast. Otherwise she is feeling well. - Objective Vital Signs & Weight: Vital Signs (12 hours) Temp Pulse Resp BP Pulse Ox 09/05/18 07:32 98.2 F 99 20 144/73 H 94 L Weight Weight 74.979 kg I&O: 09/04/18 09/05/18 09/06/18 06:59 06:59 06:59 Intake Total 490 490 Balance 490 490 Result Diagrams: 09/03/18 08:42 09/03/18 08:42 Phys Exam - Physical Examination Constitutional: NAD HEENT: moist MMs, sclera anicteric Respiratory: no wheezing, clear to auscultation bilateral Cardiovascular: RRR, no significant murmur Gastrointestinal: soft, non-tender, no distention, positive bowel sounds Musculoskeletal: no edema, pulses present Neurological: non-focal, normal sensation, moves all 4 limbs Psychiatric: normal affect, A&O x 3 Skin: no rash, cap refill <2 seconds Dx/Plan (1) ESRD (end stage renal disease) Code(s): N18.6 - END STAGE RENAL DISEASE Status: Acute (2) HLD (hyperlipidemia) Code(s): E78.5 - HYPERLIPIDEMIA, UNSPECIFIED Status: Acute (3) HTN (hypertension) Code(s): I10 - ESSENTIAL (PRIMARY) HYPERTENSION Status: Acute (4) HX: breast cancer Code(s): Z85.3 - PERSONAL HISTORY OF MALIGNANT NEOPLASM OF BREAST Status: Acute (5) History of nephrectomy, left Code(s): Z90.5 - ACQUIRED ABSENCE OF KIDNEY Status: Acute (6) Hx of coronary artery disease Code(s): Z86.79 - PERSONAL HISTORY OF OTHER DISEASES OF THE CIRCULATORY SYSTEM Status: Acute - Plan Plan: This is a 77 yo F admitted for shunt placement and initiation of hemodialysis # 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 Peng consulted for shunt placement, fistula 08/31 - renvela started for hyperphosphatemia - titrating up on dialysis, planning on 4 hours today - appreciate nephro recs # HTN - cont amlodipine, titrated up to 10mg on lisinopril 09/02, well-controlled today - PRN hydralazine # HLD - pravastatin, fenofibrate # Hx of dCHF not in exacerbation, POA - EF 55-60% 2013 # hx CAD - Cath with Dr. Dee Jul 2018 per patient - records not availabe in [facility] # Hx breast cancer - s/p chemo, mastectomy 2011 Diet: renal Fluids: tko PPx: SCDs Code: DNR/DNI Dispo: plan for d/c today pending confirmation of dialysis chair in [place] Addendum - Attending - Attending Attestation Date/Time: 09/05/18 0963 I personally evaluated the patient and discussed the management with Dr. Barclay. I agree with the History, Examination, Assessment and Plan documented above with any addition or exceptions noted below. Patient was seen in dialysis. We are waiting on dialysis chair placement. She had some mild nausea this morning but expresses her desire to go home.
--- NOTE | 2018-09-05 09:09 | PRG ---
DATE OF SERVICE: 09/05/2018 SUBJECTIVE: Ms. Canales is a 77-year-old white female, who was admitted for initiation of hemodialysis due to progressive azotemia and uremia. She is undergoing hemodialysis today. She is tolerating said treatment. I am at the bedside supervising her dialysis. She voices no new complaints. The patient denies any chest pain or shortness of breath. OBJECTIVE: VITAL SIGNS: Blood pressure 144/73, heart rate 95, respiratory rate 20, temperature 98.2, and pulse ox is 94%. GENERAL: Noted to be awake, alert, comfortable, not in overt distress. SKIN: Adequate turgor. HEENT: She has a slightly pale conjunctivae. Anicteric sclerae. No neck mass. No carotid bruits. No JVD. CHEST: No deformities. LUNGS: Clear breath sounds. HEART: Normal sinus rhythm. No murmur. No gallops. No rubs. ABDOMEN: Globular, soft, nontender. No masses. EXTREMITIES: No edema, no deformities. MEDICATIONS: Medications of September 05, 2018, was reviewed. LABORATORY DATA: Laboratories of September 03, 2018; white count 15.5, hemoglobin 8.7. Sodium 136, potassium 3.4, chloride 98, carbon dioxide 28, BUN 28, creatinine 4.71, and calcium 9.2. ASSESSMENT AND PLAN: 1. Chronic renal failure/end stage renal disease, stable. Continuing Wednesday, Wednesday, and Wednesday hemodialysis. Fluid removal only as tolerated. 2. Anemia, continuing weekly Epogen and iron supplementation. 3. Hyperphosphatemia on Renvela 800 mg p.o. t.i.d. We will be rechecking a basic metabolic profile and CBC in a.m. Due to her renal dysfunction, I would suggest we discontinue the Tricor. Job ID: [id number]
[2018-09-05] MEDS: Lisinopril 10 MG TAB PO SCH (12:18)
[2018-09-05] MEDS: Ferrous Gluconate 324 MG TAB PO SCH (12:18)
[2018-09-05] MEDS: Sevelamer Carbonate 800 MG TAB PO SCH ×3 (12:18→17:05)
[2018-09-05] MEDS: Anastrozole 1 MG TAB PO SCH (12:18)
[2018-09-05] MEDS: Amlodipine 10 MG TAB PO SCH (12:18)
[2018-09-05] MEDS: Ondansetron ODT 4 MG TAB PO PRN (12:28)
[2018-09-05] MEDS: Gabapentin 100 MG CAP PO SCH (18:35)
[2018-09-05] MEDS: Atorvastatin Calcium 10 MG TAB PO SCH (20:51)
[2018-09-05] MEDS ORDERED: Melatonin 3 MG TAB PO PRN (21:36)
[2018-09-05] MEDS: Famotidine 20 MG TAB PO SCH (23:24)
[2018-09-06 05:43] LABS: #Eosinphils 0.4 thou/uL (0.0-0.7); #Lymphocytes 1.6 thou/uL (1.20-3.40); #Monocytes 1.5 thou/uL (0.11-0.59); #Neutrophils 8.2 thou/uL (1.40-6.50); %Basophils 0.4 % (0.0-1.0); %Eosinophils 3.2 % (0.0-10.0); %Lymphocytes 13.6 % (21.0-51.0); %Monocytes 12.8 % (0.0-10.0); %Neutrophils 70.1 % (42.0-75.0); Hemoglobin 7.9 g/dL (12.0-16.0); Mean Corpuscular HGB CONC 33.2 g/dL (32.0-36.0); Mean Corpuscular Hemoglobin 30.9 pg (27.0-31.0); Mean Platelet Volume 6.9 fL (7.4-10.4); Platelet Count 248 thou/uL (130-400); RBC Distribution Width 12.2 % (11.5-14.5); Red Blood Cell (RBC) Count 2.57 mill/uL (4.20-5.40); White Blood Cell (WBC) Count 11.7 thou/uL (4.8-10.8)
[2018-09-06 06:05] LABS: Anion Gap 14 mmol/L (10-20); BUN (Urea Nitrogen) 21 mg/dL (9.8-20.1); Calc. Creatinine Clearance 14 mL/min (70-130); Calcium 8.9 mg/dL (7.8-10.44); Carbon Dioxide 27 mmol/L (23-31); Chloride 98 mmol/L (98-107); Estimated GFR-MDRD 11; Glucose 96 mg/dL (83-110); Potassium 3.8 mmol/L (3.5-5.1); Sodium 135 mmol/L (136-145)
--- NOTE | 2018-09-06 07:10 | PDOC.FM ---
- Subjective Subjective: Patient feels well this morning. Had some gerd pain last night, resolved with ranitidine. States the Nausea she was feeling earlier in the stay has much improved. Denies cough, sob, or CP. Patient feels well and ready to go home today if dialysis pain obtained. - Objective Vital Signs & Weight: Vital Signs (12 hours) Temp Pulse Resp BP Pulse Ox 09/05/18 19:37 92 L 09/05/18 19:24 99.3 F 89 16 108/64 92 L Weight Weight 74.979 kg I&O: 09/05/18 09/06/18 09/07/18 06:59 06:59 06:59 Intake Total 490 600 Balance 490 600 Result Diagrams: 09/06/18 05:30 09/06/18 05:30 Phys Exam - Physical Examination Constitutional: NAD HEENT: moist MMs, sclera anicteric Respiratory: no wheezing, clear to auscultation bilateral Cardiovascular: RRR, no significant murmur, no rub Gastrointestinal: soft, non-tender, no distention, positive bowel sounds Musculoskeletal: no edema, pulses present Neurological: non-focal, moves all 4 limbs Psychiatric: normal affect, A&O x 3 Skin: no rash, cap refill <2 seconds Dx/Plan (1) ESRD (end stage renal disease) Code(s): N18.6 - END STAGE RENAL DISEASE Status: Acute (2) HLD (hyperlipidemia) Code(s): E78.5 - HYPERLIPIDEMIA, UNSPECIFIED Status: Acute (3) HTN (hypertension) Code(s): I10 - ESSENTIAL (PRIMARY) HYPERTENSION Status: Acute (4) HX: breast cancer Code(s): Z85.3 - PERSONAL HISTORY OF MALIGNANT NEOPLASM OF BREAST Status: Acute (5) History of nephrectomy, left Code(s): Z90.5 - ACQUIRED ABSENCE OF KIDNEY Status: Acute (6) Hx of coronary artery disease Code(s): Z86.79 - PERSONAL HISTORY OF OTHER DISEASES OF THE CIRCULATORY SYSTEM Status: Acute - Plan Plan: This is a 77 yo F admitted for shunt placement and initiation of hemodialysis # 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 Peng consulted for shunt placement, fistula 08/31 - renvela started for hyperphosphatemia - titrating up on dialysis, planning on 4 hours today - appreciate nephro recs # Normocytic anemia - hgb 7.9 today - asx - on epogen # HTN - cont amlodipine, titrated up to 10mg on lisinopril 09/02, well-controlled today - PRN hydralazine # HLD - pravastatin, fenofibrate # Hx of dCHF not in exacerbation, POA - EF 55-60% 2013 # hx CAD - Cath with Dr. Dee Jul 2018 per patient - records not availabe in [facility] # Hx breast cancer - s/p chemo, mastectomy 2011 Diet: renal Fluids: tko PPx: SCDs Code: DNR/DNI Dispo: plan for d/c today pending confirmation of dialysis chair in [place] Addendum - Attending - Attending Attestation Date/Time: 09/06/18 1242 I personally evaluated the patient and discussed the management with Dr. Barclay. I agree with the History, Examination, Assessment and Plan documented above with any addition or exceptions noted below. The patient states she is feeling better. She has been out of bed and walked to bathroom. Waiting on dialysis chair and will likely d/c this afternoon if everything is arranged.
[2018-09-06] MEDS: Gabapentin 100 MG CAP PO SCH (08:27)
[2018-09-06] MEDS: Sevelamer Carbonate 800 MG TAB PO SCH ×2 (08:27→11:03)
[2018-09-06] MEDS: Aspirin 81 mg Enteric Coated Tablet PO SCH (08:27)
[2018-09-06] MEDS: Ferrous Gluconate 324 MG TAB PO SCH (08:27)
[2018-09-06] MEDS: Famotidine 20 MG TAB PO SCH (08:27)
[2018-09-06] MEDS: Anastrozole 1 MG TAB PO SCH (08:27)
--- NOTE | 2018-09-06 09:34 | PRG ---
DATE OF SERVICE: 09/06/2018 SERVICE: Renal Medicine. SUBJECTIVE: Ms. Canales is a 77-year-old white female with chronic renal failure, was admitted for initiation of dialysis. She had progressive azotemia and with uremic signs and symptoms. She underwent hemodialysis. She is tolerating said treatment. No new complaints today. No chest pain. No shortness of breath. OBJECTIVE: VITAL SIGNS: Blood pressure 106/64, heart rate 84, respiratory rate 18, temperature 98.5, and pulse ox is 93%. GENERAL: She is noted to be awake, alert, comfortable, not in distress. SKIN: Adequate turgor. HEENT: Slightly pale conjunctivae. Anicteric sclerae. NECK: No neck mass. No carotid bruits. No JVD. CHEST: No deformities. LUNGS: Clear breath sounds. HEART: Normal sinus rhythm. No murmur. No gallops. No rubs. ABDOMEN: Globular, soft, and nontender. No masses. EXTREMITIES: No edema. No deformities. MEDICATIONS: Medications of September 06, 2018, reviewed. LABORATORY DATA: Laboratories of September 06, 2018; white count 11.7, hemoglobin 7.9. Sodium 135, potassium 3.8, chloride 98, carbon dioxide 24, BUN 21, creatinine 3.82, glucose 96, and calcium 8.9. ASSESSMENT AND PLAN: 1. End-stage renal disease/chronic renal failure. Continuing hemodialysis regimen 3 times a week. She tolerated dialysis yesterday. Fluid removal only as tolerated. 2. Hypotension. My plan is to hold off for discontinuing her lisinopril for the moment. 3. Anemia. Continuing current Epogen regimen and iron supplementation. Blood transfusion only if hemoglobin less than 7. 4. Hyperphosphatemia, currently on Renvela at 800 mg p.o. t.i.d. Awaiting for outpatient dialysis placement. Agree with current management. If the patient is as such here in the outpatient setting, agree to discharge her today. Job ID: [id number]
[2018-09-06] MEDS: Amlodipine 10 MG TAB PO SCH (10:18)
[2018-09-06] MEDS: traMADol HCl 50 MG TAB PO PRN (11:04)
[2018-09-06] MEDS ORDERED: Heparin 10,000 UNITS/ 10 ML VIAL ONE (12:52)
[2018-09-06 14:07] VITALS: BP 115/63; TEMP 98.7
--- NOTE | 2018-09-06 19:01 | DIS ---
DATE OF ADMISSION: 08/30/2018 DATE OF DISCHARGE: 09/06/2018 RESIDENT: Brayan Barclay MD ADMITTING ATTENDING: Álvaro Alejandro MD DISCHARGE ATTENDING: Nicolle Rosas MD CONSULTS: 1. Nephrology, Dr. Ponce. 2. Surgery, Dr. Peng. PROCEDURES: 1. Tunneled catheter placement, right AV fistula placement by Dr. Peng. 2. Initiation of hemodialysis. PRIMARY DIAGNOSIS: End-stage renal disease. SECONDARY DIAGNOSES: Normocytic anemia; hypertension; hyperlipidemia; diastolic congestive heart failure, not in exacerbation, present on arrival; history of coronary artery disease; history of breast cancer. DISCHARGE MEDICATIONS: 1. Gabapentin 100 mg p.o. daily for 14 days. 2. Zofran 4 mg p.o. q.6 hours p.r.n. for 15 days. 3. Renvela 800 mg p.o. t.i.d. 4. Amlodipine 10 mg daily. 5. Anastrozole 1 mg daily. 6. Aspirin 81 mg daily. 7. Iron 324 mg daily. 8. Pravastatin 40 mg daily. 9. Vitamin B12 of 1000 mcg daily. 10. Flexeril 5 mg p.o. p.r.n. 11. Epogen 7500 units injection weekly. 12. Omeprazole 20 mg daily. DISCONTINUED MEDICATIONS: 1. Lisinopril. 2. Fenofibrate. HISTORY OF PRESENT ILLNESS/HOSPITAL COURSE: This is a 77-year-old female, who was sent to the ER by Dr. Ponce to set up shunt placement and initiation of hemodialysis. She had a left kidney which never developed and was removed around age 37. She then developed worsening reflux affecting the right kidney, which eventually led to failure. The patient had been contemplating dialysis for sometime, but ultimately decided with her family that she was not ready. Dr. Peng placed a shunt and an AV fistula on 08/31/2018, and the patient proceeded to initiate dialysis titrating up daily. Ultimately, the patient obtained a dialysis chair in [place] where she will follow up Wednesday, Wednesday, Wednesday, and follow up with Dr. Ponce. The patient has followup with Dr. Peng in 2-3 weeks for evaluation of the AV fistula. During the hospitalization, the patient experienced some paresthesias in the right arm, which resolved with movement and gabapentin. She will follow up with Dr. Peng, who believes this could be a resolving hematoma. The patient's hypertension medications were titrated throughout the stay. Initially, the patient was hypertensive but after dialysis, her blood pressure normalized and ultimately her lisinopril was discontinued. We will follow up on this outpatient. DISPOSITION: Stable. DISCHARGE INSTRUCTIONS: 1. Location: Home. 2. Diet: Renal. 3. Activity: As tolerated. 4. Followup: Follow up with Dr. Ponce in 1 week, Dr. Peng in 2-3 weeks, Dr. Soria within 1 week. Please follow up on patient's blood pressure as the medications were titrated during the stay. Job ID: [id number]
== END 2018-09-06 15:45 | disposition home or self-care (01) | DRG 264 ==
LOC: ERS 08:37 → ERHOLD 10:13 → T4-A 16:11
PROVIDERS: ADMIT Family Medicine; ATTEND Family Medicine
PROC: 031B0ZF Bypass Right Radial Artery to Lower Arm Vein, Open Approach (ICD-10-PCS; 2018-08-30)
PROC: B548ZZA Ultrasonography of Superior Vena Cava, Guidance (ICD-10-PCS; 2018-08-30)
PROC: B518ZZA Fluoroscopy of Superior Vena Cava, Guidance (ICD-10-PCS; 2018-08-30)
PROC: 5A1D70Z Performance of Urinary Filtration, Intermittent, Less than 6 Hours Per Day (ICD-10-PCS; principal; 2018-08-31)
PROC: 0JHD3XZ Insertion of Tunneled Vascular Access Device into Right Upper Arm Subcutaneous Tissue and Fascia, Percutaneous Approach (ICD-10-PCS; 2018-08-31)
PROC: 02HV33Z Insertion of Infusion Device into Superior Vena Cava, Percutaneous Approach (ICD-10-PCS; 2018-08-31)
DX: I13.2 Hypertensive heart and chronic kidney disease with heart failure and with stage 5 chronic kidney disease, or end stage renal disease (principal); N18.6 End stage renal disease; I50.32 Chronic diastolic (congestive) heart failure; Z66 Do not resuscitate; D63.1 Anemia in chronic kidney disease; I25.10 Atherosclerotic heart disease of native coronary artery without angina pectoris; E78.5 Hyperlipidemia, unspecified; E66.9 Obesity, unspecified; R20.2 Paresthesia of skin; E83.39 Other disorders of phosphorus metabolism; Z90.49 Acquired absence of other specified parts of digestive tract; Z90.710 Acquired absence of both cervix and uterus; Z91.041 Radiographic dye allergy status; Z91.013 Allergy to seafood; Z79.82 Long term (current) use of aspirin; Z79.899 Other long term (current) drug therapy; Z85.3 Personal history of malignant neoplasm of breast; Z90.5 Acquired absence of kidney; Z68.31 Body mass index [BMI] 31.0-31.9, adult
CPT/HCPCS: 36415; 71045; 80048; 80053; 83735; 84100; 85025; 86580; 86704; 86706; 86803; 87340; 93005; 93970; C1752; G0365; J0670; J1644; J2001; J2175; J2250; J2704; J2720; J3010; Q0162; Q4081

== ENCOUNTER 2019-01-03 06:41 | Day surgery (SDC) | payer MEDICARE, MEDICAID ==
[2019-01-02 15:43] VITALS: BMI 32.2
--- NOTE | 2019-01-02 15:53 | HP ---
LAUNDRY OPERATOR: Dr. Ponce. MUSICAL INSTRUMENT MECHANIC: Dr. Dee. ONCOLOGIST: Dr. Cast. PATIENT CARE ASSOCIATE: Dr. Cao. HISTORY OF PRESENT ILLNESS: Rita Canales, 78-year-old female, dialyzing Wednesday, Wednesday, and Wednesday at [facility], and is still dependent on her dialysis catheter. She has a right arm fistula placed on 08/31/2018; inflow, antecubital vein; outflow, cephalic and basilic vein. This was slow to mature and had a fistulogram recently demonstrating good outflow through the cephalic and basilic vein. Cephalic vein is widely patent. She has had a prior right mastectomy and node dissection for breast cancer and a prophylactic left mastectomy. She has some swelling in her right arm. She is obese, 30 BMI, 61 inches, 167 pounds, and I have been having difficulty accessing her fistula. She desires peritoneal dialysis and has undergone training, and is wanting to have that performed. She understands risks and benefits, and consents. Plan at this time is laparoscopic placement of peritoneal dialysis catheter and to obtain a fistulogram to further evaluate her fistula. At the time of operation, she may need revision of her fistula for future use. We will await her fistulogram. Please delete any references to a fistulogram that I previously mentioned on this patient as she has not had that done. MEDICATIONS: 1. Diltiazem. 2. Aspirin. 3. Arimidex. 4. Prilosec. 5. Clonidine. PAST MEDICAL HISTORY: Elevated cholesterol; hypertension; left nephrectomy due to atrophic kidney and chronic infection; inflammatory breast cancer, T2N2M0, estrogen/progesterone positive, HER-2 negative, undergoing chemotherapy, status post right mastectomy, node dissection, and prophylactic left mastectomy; parathyroid resection in 1976; hysterectomy in 1976; rotator cuff in 2006, right eye lens implant in 2007; right hip total hip replacement in 2008; cholecystectomy in 2009; skin tumor cyst removed from neck area in the past in 2009; cardiac catheterization, normal, Dr. Dee; right modified radical mastectomy, left simple mastectomy, and MediPort placement by Dr. Cohen in December 2011; hemodialysis catheter and right arm fistula on 08/31/2018. ALLERGIES: NONE. SOCIAL HISTORY: Tobacco none. Alcohol none. She is retired. PHYSICAL EXAMINATION: VITAL SIGNS: 167 pounds, 61 inches, 30 BMI, 121/70, 70 heart rate, 96.8 degrees. HEAD, EARS, EYES, NOSE, AND THROAT: Unremarkable. LUNGS: Clear to auscultation. CARDIAC: Regular rate and rhythm without murmur or gallop. ABDOMEN: Soft and nontender. No hernias. Firm umbilical area with infraumbilical incision, but no appreciable hernia on exam. Infraumbilical incision from prior hysterectomy. EXTREMITIES: Right arm fistula with good thrill and bruit in her right upper arm. Well-healed proximal volar forearm incision. Good thrill and bruit in her fistula. ASSESSMENT AND PLAN: 1. Desires peritoneal dialysis. We will plan laparoscopic peritoneal dialysis catheter placement. She understands risks and benefits, and consents. 2. Unable to access her right arm fistula. We will plan fistulogram. We will plan revision pending fistulogram results to facilitate fistula function for future use if necessary. She understands risks and benefits, and consents. 3. Status post right mastectomy and node dissection. Follow up with Dr. Cast today. She has some right arm edema, which may be a combination of prior mastectomy and dialysis fistula of right arm. 4. End-stage renal disease, on maintenance dialysis. Job ID: [id number]
--- NOTE | 2019-01-03 09:55 | SPC ---
RIGHT UPPER EXTREMITY AV FISTULOGRAM: HISTORY: AV fistula malfunction. COMPARISON: None. EXPOSURE: 1.5 minutes 01144 mGy per cm2. FINDINGS: Successful right upper extremity fistulogram. There is a venous collateral involving the proximal ce phalic venous outflow. The subclavian vein and superior vena cava are patent. Despite multiple attempts to opacify the arterial inflow in a retrograde fashion, opacification was u nsuccessful, likely due to brisk arterial inflow. Opacification of a basilic venous outflow tract wa s noted. The visualized proximal basilic venous outflow tract is patent. IMPRESSION: 1. Patency in the cephalic venous outflow tract. There is a proximal collateral. 2. Despite multiple attempts with manual pressure, arterial inflow could not be obtained, likely due to brisk inflow of blood. POS: OFF
--- NOTE | 2019-01-03 11:14 | HP ---
HISTORY OF PRESENT ILLNESS: Rita Canales, 78-year-old female who on 08/31/2018, had a right arm fistula, proximal radial artery outflow cephalic and basilic vein. This was slow to mature or at least difficult to access, probably due to her obesity 164 pounds, 62 inches, and she underwent fistulogram today. This revealed patency of the cephalic and basilic vein outflow without obstruction. Central circulation was normal. She has had a previous right mastectomy and node dissection, had some chronic edema of her right arm. She dialyzes [facility] Wednesday, Wednesday, and Wednesday. The peritoneal dialysis nurse has evaluated her home and she is ready for laparoscopic PD catheter. We will plan as an outpatient next week. She understands risks and benefits and consents. We will also ask them to start access in her right arm fistula and see if they can do that. It maybe that she will just go straight to peritoneal dialysis depending on their ability to access her fistula. We will leave her hemodialysis catheter present during the placement of the laparoscopic PD catheter. We can use her hemodialysis catheter for IV access and blood draws. Her primary care doctor is Dr. Soria. 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 PAST SURGICAL HISTORY: Left nephrectomy secondary to nonfunctioning kidney 1976; parathyroidectomy, subtotal, 1976; hysterectomy, 1976; rotator cuff 2006; right eye lens implant 2007; total hip replacement 2008; cholecystectomy, laparoscopic 2009; neck soft tissue tumor removed in the past; cardiac catheterization in 2009; normal coronary arteries;normal ejection fraction; eye surgery; colonoscopy, 12/15/2011; right modified mastectomy, left simple mastectomy; MediPort placement in 2011; cystoscopy; hemodialysis catheter placed by ri August 2018, with right arm fistula 08/31/2018. FAMILY HISTORY: No significant findings, unknown. HABITS: Tobacco none, alcohol none. ALLERGIES: NONE. REVIEW OF SYSTEMS: Ten-point noncontributory, otherwise. She is followed by Dr. Dee for cardiac murmur. Her ejection fraction is normal. Coronaries normal by catheterization in the past. PHYSICAL EXAMINATION: VITAL SIGNS: Weight 164 pounds, 62 inches, blood pressure 177/88, 92 heart rate, 97.3 degrees. HEAD, EYES, EARS, NOSE, AND THROAT: Unremarkable. LUNGS: Clear to auscultation. CARDIAC: Regular rate and rhythm without gallop, but with 1 to 2/6 ejection murmur. ABDOMEN: Soft and nontender. No masses. No hernias. EXTREMITIES: Palpable pulses. Right upper arm fistula, good thrill and bruit. Slightly obese upper arm. Good thrill and bruit in antecubital fossa. Hemodialysis catheter present. Mild edema, right arm. ASSESSMENT/PLAN: 1. Maturing right arm fistula. Recent fistulogram yesterday reveals it as patent. Both basilic and cephalic vein outflow. It is probably deep due to obesity and difficult to access. We will ask Addis George to start try and access this. 2. Desires peritoneal dialysis. Her home has been evaluated and she is felt to be a good candidate after being educated and observing the videos. We will plan this as an outpatient laparoscopic peritoneal dialysis catheter placement. Job ID: [id number]
[2019-01-03] MEDS ORDERED: Heparin 1,000 UNITS/ML VIAL ONE (15:00)
[2019-01-03] MEDS ORDERED: Prevnar 13-Val Conj/PF 0.5 ML SYRINGE IM ONE (16:00)
== END 2019-01-03 08:45 | disposition home or self-care (01) ==
LOC: SPEC 06:41
PROVIDERS: ATTEND Specialist
PROC: B50W1ZZ Plain Radiography of Dialysis Shunt/Fistula using Low Osmolar Contrast (ICD-10-PCS; principal; 2019-01-03)
DX: T82.590A Other mechanical complication of surgically created arteriovenous fistula, initial encounter (principal); I12.0 Hypertensive chronic kidney disease with stage 5 chronic kidney disease or end stage renal disease; N18.6 End stage renal disease; E66.9 Obesity, unspecified; E78.00 Pure hypercholesterolemia, unspecified; Z99.2 Dependence on renal dialysis; Z85.3 Personal history of malignant neoplasm of breast; Z68.32 Body mass index [BMI] 32.0-32.9, adult; Z91.041 Radiographic dye allergy status; Z91.013 Allergy to seafood; Z79.82 Long term (current) use of aspirin; Z79.899 Other long term (current) drug therapy
CPT/HCPCS: 36901; J1644

== ENCOUNTER 2019-03-05 15:27 | Inpatient (IN) | payer MEDICARE, MEDICAID ==
[2019-03-05 17:03] LABS: #Eosinphils 0.3 thou/uL (0.0-0.7); #Lymphocytes 1.9 thou/uL (1.20-3.40); #Monocytes 0.7 thou/uL (0.11-0.59); #Neutrophils 9.2 thou/uL (1.40-6.50); %Basophils 0.1 % (0.0-1.0); %Eosinophils 2.3 % (0.0-10.0); %Lymphocytes 15.7 % (21.0-51.0); %Monocytes 5.7 % (0.0-10.0); %Neutrophils 76.2 % (42.0-75.0); Hemoglobin 11.8 g/dL (12.0-16.0); Mean Corpuscular HGB CONC 33.1 g/dL (32.0-36.0); Mean Corpuscular Hemoglobin 32.4 pg (27.0-31.0); Mean Corpuscular Volume 97.8 fL (78.0-98.0); Mean Platelet Volume 6.6 fL (7.4-10.4); Platelet Count 210 thou/uL (130-400); RBC Distribution Width 12.9 % (11.5-14.5); Red Blood Cell (RBC) Count 3.64 mill/uL (4.20-5.40)
[2019-03-05 17:16] LABS: ALT (SGPT) 11 U/L (8-55); AST (SGOT) 18 U/L (5-34); Albumin 3.8 g/dL (3.4-4.8); Alkaline Phosphatase 44 U/L (40-110); Anion Gap 22 mmol/L (10-20); BUN (Urea Nitrogen) 56 mg/dL (9.8-20.1); Bilirubin, Total 0.6 mg/dL (0.2-1.2); Calc. Creatinine Clearance 0 mL/min (70-130); Calcium 9.6 mg/dL (7.8-10.44); Carbon Dioxide 21 mmol/L (23-31); Chloride 98 mmol/L (98-107); Estimated GFR-MDRD 3; Globulin 3.6 g/dL (2.4-3.5); Glucose 86 mg/dL (83-110); Lipase 80 U/L (8-78); Potassium 5.4 mmol/L (3.5-5.1); Protein, Total 7.4 g/dL (6.0-8.3); Sodium 136 mmol/L (136-145)
[2019-03-05 17:46] LABS: Bilirubin Negative (Negative); Blood, Urine 1+ (Negative); Clarity Extra Turbid (Clear); Glucose, Urine (Dipstick) Normal (Negative); Leukocyte 500 Leu/uL (Negative); Nitrite Negative (Negative); Protein, Urine (Dipstick) 300 mg/dL (Neg-Trace)
[2019-03-05 17:57] LABS: Bacteria/HPF 4+ HPF (None Seen); RBC/HPF 0-3 HPF (0-3); Squamous Epithelial 0-3 HPF (0-3); WBC/HPF Greater Than 50 HPF (0-3)
--- NOTE | 2019-03-05 18:29 | ULT ---
RIGHT UPPER EXTREMITY VENOUS DUPLEX EXAM: History: Right arm swelling. FINDINGS: Real-time color doppler evaluation of the right upper extremity was performed to include internal jug ular vein, subclavian, axillary, brachial, basilic and cephalic veins. This shows a patent deep venou s system with normal compressibility and augmentation. Forearm veins also appear patent. The technolo gist reports the AV fistula also appears patent. IMPRESSION: No evidence of DVT. POS: IDANIA
[2019-03-05] MEDS ORDERED: cefTRIAXone\\ROCEPHIN 2 GM VIAL ONE (19:14)
--- NOTE | 2019-03-05 20:58 | PDOC.FPRHP ---
- History of Present Illness Chief Complaint: UTI, Cloudy Peritoneal Fluid History of Present Illness: Pt is an 78 yo female with PMH significant for diastolic HF, HTN, HLD, CAD, normocytic anemia, and ESRD requiring peritoneal dialysis presents for cloudy peritoneal fluid and R groin pain. In regards to her peritoneal fluid, she states she has undergone PD since the beginning of the month. Previously she was requiring HD via port, fistula was non-functional due to recurrent clot formation. She has required dialysis since the beginning of 2018 secondary to R kidney reflux and L nephrectomy. Her peritoneal dialysis fluid on 03/04 became cloudy prompting the pt to come to the emergency department. She denies abdominal pain, fevers, chills. Pt has 1 exchange per day. In regards to her R groin pain, she states this is similar pain when she has a UTI. She endorsed an erythematous rash on her chest which appears when she has a UTI. She is producing less urine now that she is in ESRD but is capable. She denies any other symptoms, increased frequency, dysuria, hematuria, urgency. ED Course: In the ED she was found to have normal vitals. Dr. Ponce was consulted due to concern with peritoneal fluid who recommended starting gentamycin, rocephin, and undergoing PD tonight. WBC 12.0, lactic acid 1.0. Due to recent hx of failed fistula 2/2 clot formation a RUE doppler was performed and negative. - Allergies/Adverse Reactions Allergies Allergy/AdvReac Type Severity Reaction Status Date / Time Iodine and Iodide Containing Allergy Short of Verified 03/05/19 21:54 Produc Breath shellfish derived Allergy Short of Verified 03/05/19 21:54 Breath - Home Medications Medication Instructions Recorded Confirmed Type Anastrozole [Arimidex] 1 mg PO DAILY 05/29/14 03/05/19 History Aspirin [Aspirin EC] 81 mg PO DAILY 05/29/14 03/05/19 History Cyanocobalamin (Vitamin B-12) 1,000 mcg PO DAILY 08/30/18 03/05/19 History [B-12] Cyclobenzaprine HCl 5 mg PO PRN PRN 08/30/18 03/05/19 History Multivit-Min/Folic Acid/Vit K1 1 each PO DAILY 08/30/18 03/05/19 History [Multi For Her 50 Plus Softgel] Pravastatin Sodium 40 mg PO HS 08/30/18 03/05/19 History Omeprazole 1 capsule PO QAM 09/02/18 03/05/19 History Ondansetron [Zofran ODT] 4 mg PO Q6H PRN 15 Days #60 tab 09/05/18 03/05/19 Rx Sevelamer Carbonate [Renvela] 800 mg PO TID-WM 30 Days #90 tab 09/05/18 Rx Lisinopril [Zestril] 2.5 mg PO DAILY 01/09/19 03/05/19 History Acetaminophen [Tylenol] 1 - 2 tab PO PRN PRN 03/05/19 03/05/19 History Amlodipine [Norvasc] 10 mg PO DAILY 03/05/19 03/05/19 History Ascorbic Acid [Vitamin C] 500 mg PO DAILY 03/05/19 03/05/19 History Carvedilol 6.25 mg PO BID 03/05/19 03/05/19 History Cholecalciferol (Vitamin D3) 2,000 unit PO DAILY 03/05/19 03/05/19 History [Vitamin D] Gabapentin [Neurontin] 100 mg PO DAILY 03/05/19 03/05/19 History - History PMHx: HTN, HLD, Diastolic HF, Dialysis, ESRD, Breast cancer, R Kidney Reflux PSHx: L Nephrectomy, Hysterectomy, Cholecystectomy, Appendectomy, Parathyroidectomy FHx: non-contributory Social: denies smoking, alcohol, drug use; lives with hsband - Review of Systems General: denies: fever/chills, weight/appetite/sleep changes, night sweats ENT: denies: nasal congestion, rhinorrhea Respiratory: denies: cough, congestion Cardiovascular: denies: chest pain, palpitation, edema Gastrointestinal: denies: nausea, vomiting, diarrhea, constipation, abdominal pain, GI bleeding Genitourinary: denies: dysuria, polyuria Skin: reports: rashes. denies: lesions Musculoskeletal: reports: swelling (Chronic RUE swelling). denies: pain Neurological: denies: numbness, weakness - Vital signs BP: [135/62] HR: [76] RR: [18] Tmax: [98.7] Pox: [96]% on [RA] Wt: [74.5 kg] - Physical Exam Constitutional: NAD, awake, alert and oriented HEENT: normocephalic and atraumatic, EOMI Neck: FROM, trachea midline Heart: RRR, normal S1/S2, no murmurs/rubs/gallops, pulses present, no edema Lungs: CTAB, no respiratory distress, no wheezing Abdomen: soft, non-tender, bowel sounds present, no masses/distention Musculoskeletal: normal structure, ROM grossly normal Neurological: no focal deficit, normal sensation Skin: no jaundice, other (Erythematous rash over chest and abdomen, warm to touch, no open lesions) Heme/Lymphatic: no purpura, no petechia Psychiatric: normal mood and affect, good judgment and insight FMR H&P: Results - Labs Result Diagrams: 03/06/19 05:47 03/06/19 05:47 Lab results: WBC 12.0 thou/uL (4.8-10.8) H 03/05/19 16:48 Hgb 11.8 g/dL (12.0-16.0) L 03/05/19 16:48 Hct 35.6 % (36.0-47.0) L 03/05/19 16:48 MCV 97.8 fL (78.0-98.0) 03/05/19 16:48 Plt Count 210 thou/uL (130-400) 03/05/19 16:48 Neutrophils % 76.2 % (42.0-75.0) H 03/05/19 16:48 Sodium 136 mmol/L (136-145) 03/05/19 16:48 Potassium 5.4 mmol/L (3.5-5.1) H 03/05/19 16:48 Chloride 98 mmol/L (98-107) 03/05/19 16:48 Carbon Dioxide 21 mmol/L (23-31) L 03/05/19 16:48 BUN 56 mg/dL (9.8-20.1) H 03/05/19 16:48 Creatinine 11.53 mg/dL (0.6-1.1) H 03/05/19 16:48 Glucose 86 mg/dL (83-110) 03/05/19 16:48 Lactic Acid 1.0 mmol/L (0.5-2.2) 03/05/19 17:08 Calcium 9.6 mg/dL (7.8-10.44) 03/05/19 16:48 Total Bilirubin 0.6 mg/dL (0.2-1.2) 03/05/19 16:48 AST 18 U/L (5-34) 03/05/19 16:48 ALT 11 U/L (8-55) 03/05/19 16:48 Alkaline Phosphatase 44 U/L (40-110) 03/05/19 16:48 C-Reactive Protein 3.27 mg/dL (= or < 0.5) H 03/05/19 17:08 Serum Total Protein 7.4 g/dL (6.0-8.3) 03/05/19 16:48 Albumin 3.8 g/dL (3.4-4.8) 03/05/19 16:48 Lipase 80 U/L (8-78) H 03/05/19 16:48 Urine Ketones Negative mg/dL (Negative) 03/05/19 17:26 Urine Blood 1+ (Negative) A 03/05/19 17:26 Urine Nitrite Negative (Negative) 03/05/19 17:26 Ur Leukocyte Esterase 500 Uvaldo/uL (Negative) A 03/05/19 17:26 Urine RBC 0-3 HPF (0-3) 03/05/19 17:26 Urine WBC Greater Than 50 HPF (0-3) A 03/05/19 17:26 Ur Squamous Epith Cells 0-3 HPF (0-3) 03/05/19 17:26 Urine Bacteria 4+ HPF (None Seen) A 03/05/19 17:26 FMR H&P: A/P - Problem List (1) UTI (urinary tract infection) Current Visit: Yes Status: Acute (2) Abnormal peritoneal fluid Current Visit: Yes Status: Acute Code(s): R85.9 - UNSP ABNORMAL FINDING IN SPECIMENS FROM DGSTV ORG/ABD CAV (3) ESRD (end stage renal disease) Current Visit: No Status: Acute Code(s): N18.6 - END STAGE RENAL DISEASE (4) HTN (hypertension) Current Visit: No Status: Acute Code(s): I10 - ESSENTIAL (PRIMARY) HYPERTENSION (5) History of nephrectomy, left Current Visit: No Status: Acute Code(s): Z90.5 - ACQUIRED ABSENCE OF KIDNEY (6) Hx of coronary artery disease Current Visit: No Status: Acute Code(s): Z86.79 - PERSONAL HISTORY OF OTHER DISEASES OF THE CIRCULATORY SYSTEM - Plan Pt is an 78 yo female who presents for cloudy peritoneal fluid, R groin pain admitted to medicine for further work up of infectious process and antibiotics. # Abnormal Peritoneal Fluid Pt is stable. Denies abdominal pain, systemic symptoms but per family had cloudy peritoneal fluid. - culture/gram stain pending - Cell Diff of fluid pending - nephro rec's, appreciate recommendations. - Began Rocephin daily, in-dwelling gentamicin per nephrology recommendations - tylenol prn fever # ESRD - continue evening PD - continue home meds # UTI - continue abx as above - culture pending # HTN - continue home meds # HLD - continue home meds # GERD - continue home meds Fluids: none Diet: High Protein Code: Full Dispo: Stable, admit to medicine for abx administration. FMR H&P: Upper Level - Pertinent history Pt is an 78 yo female with PMH significant for diastolic HF, HTN, HLD, CAD, normocytic anemia, and ESRD requiring peritoneal dialysis presents for cloudy peritoneal fluid and R groin pain. Pt reports she noticed cloudy PD fluid after nights exchange and called her emt/dispatcher who recommended she present to ED for further evaluation. Pt denies any sytemic symptoms. No fever, chills, sob, weakness, fatigue, abd pain, NVDC. Nephrology consulted in ED recommend gent and cephalosporin per ER provider. - Pertinent findings ROS: As above PE: Gen: NAD HEENT: NCAT CV: RRR No MRG Resp: Ctabb/l no wrr Abd: Soft NTND, PD catheter in place Neuro no focal deficit - Plan Date/Time: 03/05/192057 ILeobardo DO, have evaluated this patient and agree with findings/ plan as outlined by director internal audit resident. Pertinent changes/additions are listed here. 1) Cloudy diasylate and Peritoneal fluid - culture and gram stain done in ed and pending - abx per nehpro recommendations - nephro consulted appreciate recommendations 2) Leukocytosis - peritonitis from pd vs UTI - culture pending - empiric abx, trend 3) ESRD on PD; - manage per nephro, appreciate recs 4) Hyperkalemia: - on PD - no ekg changes - monitor 5) HTN: home meds 6) HLD: home meds Dispo: stable, admit to medical for empiric abx and await cultures. Gent with PD and cont rocephin.
[2019-03-05] MEDS ORDERED: Ondansetron ODT 4 MG TAB PO PRN (21:33)
[2019-03-05] MEDS ORDERED: Acetaminophen 325 MG TAB PO PRN (21:33)
[2019-03-05 22:36] LABS: BF Color Colorless; Body Fluid Source Dialysate Fluid; Clarity Clear (Clear); Tube # 1
[2019-03-05 22:37] LABS: BF RBC Count - Manual 0 /cumm; BF WBC/Nonhematics Ct. - Manua 0 /cumm
[2019-03-06 06:27] LABS: Hemoglobin 11.9 g/dL (12.0-16.0); Mean Corpuscular HGB CONC 33.4 g/dL (32.0-36.0); Mean Corpuscular Hemoglobin 33.1 pg (27.0-31.0); Mean Corpuscular Volume 99.1 fL (78.0-98.0); Mean Platelet Volume 6.5 fL (7.4-10.4); Platelet Count 234 thou/uL (130-400); RBC Distribution Width 12.9 % (11.5-14.5); Red Blood Cell (RBC) Count 3.58 mill/uL (4.20-5.40); White Blood Cell (WBC) Count 9.8 thou/uL (4.8-10.8)
[2019-03-06 06:31] LABS: Eosinophils 6 % (0-10); Lymphocytes 21 % (21-51); MDiff Complete? YES; Monocytes 10 % (0-10); Neutrophil 63 % (42-75)
--- NOTE | 2019-03-06 06:39 | PDOC.FM ---
- Subjective Subjective: Pt is comfortable this morning. No acute overnight events. Pt states her rash is still present over chest, red, but not bothersome. Slight pain with urination this morning. Only urinates 2-3 times a day. on PD. No problems with PD overnight. - Objective MAR Reviewed: Yes Vital Signs & Weight: Vital Signs (12 hours) Temp Pulse Resp BP Pulse Ox 03/06/19 04:00 97.6 F 77 18 112/72 93 L 03/06/19 00:25 98 F 85 16 101/63 92 L 03/05/19 21:39 94 L 03/05/19 21:31 97.6 F 90 18 145/69 H 94 L Weight Weight 74.559 kg I&O: 03/04/19 03/05/19 03/06/19 06:59 06:59 06:59 Intake Total 480 Balance 480 Result Diagrams: 03/06/19 05:47 03/06/19 05:47 Phys Exam - Physical Examination Constitutional: NAD HEENT: PERRLA, moist MMs Neck: no nodes, no JVD, supple, full ROM Respiratory: no wheezing, no rales, no rhonchi, clear to auscultation bilateral Cardiovascular: RRR, no significant murmur, no rub Gastrointestinal: soft, non-tender, positive bowel sounds slight distened, but not tense. Musculoskeletal: no edema, pulses present Neurological: non-focal, normal sensation, moves all 4 limbs Psychiatric: normal affect, A&O x 3 Skin: normal turgor, cap refill <2 seconds Deviation from normal: erythematous, macular rash over anterior chest. Dx/Plan (1) Abnormal peritoneal fluid Code(s): R85.9 - UNSP ABNORMAL FINDING IN SPECIMENS FROM DGSTV ORG/ABD CAV Status: Acute (2) UTI (urinary tract infection) Status: Acute (3) ESRD (end stage renal disease) Code(s): N18.6 - END STAGE RENAL DISEASE Status: Acute (4) HLD (hyperlipidemia) Code(s): E78.5 - HYPERLIPIDEMIA, UNSPECIFIED Status: Acute (5) HTN (hypertension) Code(s): I10 - ESSENTIAL (PRIMARY) HYPERTENSION Status: Acute (6) History of nephrectomy, left Code(s): Z90.5 - ACQUIRED ABSENCE OF KIDNEY Status: Acute - Plan Plan: Pt is an 78 yo female who presents for cloudy peritoneal fluid, R groin pain admitted to medicine for further work up of infectious process and antibiotics. 1. Abnormal Peritoneal Fluid - Pt is stable. Denies abdominal pain, systemic symptoms but per family had cloudy peritoneal fluid. - culture/gram stain pending - Cell Diff of fluid pending - Following nephro rec's, appreciate recommendations. - Rocephin daily, in-dwelling gentamicin per nephrology recommendations. Dr. Ponce. - tylenol prn fever 2. ESRD - continue evening PD - continue home meds 3. UTI - UA evidence of UTI - continue abx as above - culture pending - Procal pending - CRP 3.27 4. HTN - continue home meds 5. HLD - continue home meds 6. GERD - continue home meds Fluids: none Diet: High Protein Code: Full Dispo: Stable, admit to medicine for abx administration. Addendum - Attending - Attending Attestation Date/Time: 03/06/191925 I personally evaluated the patient and discussed the management with Dr. Vallejo. I agree with the History, Examination, Assessment and Plan documented above with any addition or exceptions noted below. Pt notes uti symptoms are improved. She remains on antibiotics. Awaiting urine culture results. Dialysis per Dr. Ponce.
[2019-03-06 06:44] LABS: Anion Gap 21 mmol/L (10-20); BUN (Urea Nitrogen) 55 mg/dL (9.8-20.1); Calc. Creatinine Clearance 5 mL/min (70-130); Calcium 9.4 mg/dL (7.8-10.44); Carbon Dioxide 24 mmol/L (23-31); Chloride 100 mmol/L (98-107); Estimated GFR-MDRD 3; Glucose 77 mg/dL (83-110); Potassium 4.6 mmol/L (3.5-5.1); Sodium 140 mmol/L (136-145)
[2019-03-06] MEDS ORDERED: Cyclobenzaprine 10 MG TAB PO PRN (07:31)
[2019-03-06] MEDS ORDERED: Ondansetron ODT 4 MG TAB PO PRN (07:31)
[2019-03-06] MEDS: Lisinopril 2.5 MG TAB PO SCH (09:08)
[2019-03-06] MEDS: Sevelamer Carbonate 800 MG TAB PO SCH ×3 (09:08→16:51)
[2019-03-06] MEDS: Ascorbic Acid 500 mg Chewable Tablet PO SCH (09:09)
[2019-03-06] MEDS: Amlodipine 10 MG TAB PO SCH (09:09)
[2019-03-06] MEDS: Multivit, Therapeutic 1 TAB PO SCH (09:09)
[2019-03-06] MEDS: Aspirin 81 mg Enteric Coated Tablet PO SCH (09:09)
[2019-03-06] MEDS: Cyanocobalamin (Vitamin B-12) 1,000 MCG TAB PO SCH (09:09)
[2019-03-06] MEDS: Gabapentin 100 MG CAP PO SCH (09:09)
[2019-03-06] MEDS: Anastrozole 1 MG TAB PO SCH (09:10)
[2019-03-06] MEDS: Carvedilol 6.25 MG TAB PO SCH ×2 (09:10→20:20)
[2019-03-06] MEDS: Heparin 5,000 UNITS/ML VIAL SC SCH ×3 (09:10→20:20)
--- NOTE | 2019-03-06 10:45 | CON ---
DATE OF CONSULTATION: HISTORY OF PRESENT ILLNESS: Ms. Canales is an 78-year-old white female with ESRD and currently on peritoneal dialysis. She was admitted due to complain of cloudy PD fluid. She was also diagnosed to have a UTI. She has been empirically treated with antibiotics. She has received IV Rocephin as well as IV gentamicin. PD fluid was sent and the lab report showed the cell count was normal and the PD fluid was clear. We are following this patient for maintenance peritoneal dialysis. She did well with the peritoneal dialysis. REVIEW OF SYSTEMS: No abdominal pain. Denies any fever or chills. No nausea. No vomiting. No diarrhea. No constipation. No productive cough. No headache. No diplopia. No diarrhea. No syncopal episode. Appetite and energy level are fair. No hematochezia. No melena. No headache. No chest pain. No shortness of breath. HOME MEDICATIONS: Includes the following; 1. Arimidex 1 mg once a day. 2. Aspirin 81 mg tablet once a day. 3. Vitamin B12 of 1000 mcg daily. 4. Flexeril 5 mg t.i.d. p.r.n. 5. Pravastatin 40 mg at bedtime. 6. Omeprazole 1 capsule q.a.m. 7. Renvela 800 mg one tablet t.i.d. with meals. 8. Lisinopril 2.5 mg once a day. 9. Amlodipine 10 mg daily. 10. Ascorbic acid 500 mg daily. 11. Carvedilol 6.25 mg p.o. b.i.d. 12. Neurontin 100 mg daily. 13. Vitamin D3 of 2000 international units daily. PAST MEDICAL HISTORY: 1. Hyperlipidemia. 2. Hypertension. 3. 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 4. Breast cancer in remission. 5. Chronic anemia of chronic renal disease. PAST SURGICAL HISTORY: Status post mastectomy, status post breast biopsy, status post left nephrectomy, status post tonsillectomy, status post appendectomy, status post hysterectomy, and status post cholecystectomy. SOCIAL HISTORY: The patient lives in [place]. , several children. No history of smoking. No alcohol intake. Education, high school. No blood transfusion. No IV drug abuse. ALLERGIES: NO KNOWN DRUG ALLERGIES. TRAUMA: None. IMMUNIZATIONS: Up-to-date. HOSPITALIZATIONS: Please see past medical history. FAMILY HISTORY: No family history of ESRD. PHYSICAL EXAMINATION: VITAL SIGNS: Blood pressure is noted at 121/73, heart rate 76, respiratory rate 18, temperature 98.3, and pulse ox 92%. GENERAL: Noted to be awake, alert, and comfortable, not in distress. SKIN: Adequate turgor. HEENT: Pinkish conjunctivae. Anicteric sclerae. NECK: No neck mass. No carotid bruits. No JVD. CHEST: No deformities. LUNGS: Clear breath sounds. No wheezing. No crackles. HEART: Normal sinus rhythm. No murmur. No gallops. No rubs. ABDOMEN: Globular, soft, and nontender. No masses. EXTREMITIES: No edema. No deformities. Please note, she has a PD catheter. LABORATORY DATA: Laboratories of March 06, 2019, white count 9.8 and hemoglobin 11.9. Sodium 140, potassium 4.6, chloride 100, carbon dioxide 24, BUN 55, creatinine 11, glucose 77, and calcium 9.4. Urinalysis, protein greater than 300 and wbc greater than 50. March 05, 2019, blood culture, no growth to-date. PD fluid showed it to be colorless and clear, white cells 0. ASSESSMENT AND PLAN: 1. ? of peritonitis - reported cloudy PD fluid. However, the laboratory examination of the PD fluid showed it to be clear. No evidence of any infection. 2. Urinary tract infection, on empiric IV antibiotics. 3. End-stage renal disease. We will continue current CCPD regimen, tolerating said treatment. If cultures are negative, my bias is to probably discontinue antibiotics. She is also actually being treated empirically for a urinary tract infection. Overall agree with current management. Recheck CBC and basic metabolic in a.m. Job ID: [id number]
[2019-03-06] MEDS ORDERED: cefTRIAXone\\ROCEPHIN 2 GM in Sodium Chloride 0.9% 100 ML IVPB SCH (18:00)
[2019-03-06] MEDS ORDERED: cefTRIAXone\\ROCEPHIN 1 GM in Sodium Chloride 0.9% 100 ML IVPB SCH (18:00)
--- NOTE | 2019-03-06 19:53 | PRG ---
DATE OF SERVICE: 03/06/2019 SUBJECTIVE: Ms. Rita Canales is admitted for peritoneal dialysis problems. Apparently, there was concern she might have UTI and that she might have peritonitis. I was consulted. In August of this year, I placed a right arm fistula. At that time, her brachiocephalic vein seemed to be patent, calibrated to a 4 mm dilator, and she also had outflow to the basilic vein secondarily. Retrograde antecubital vein was preserved. The patient had a laparoscopic peritoneal dialysis catheter on 01/10/2019, and has been using that without problems. The patient had a fistulogram performed on 01/03/2019. It was read as normal; however, personal review of the x-rays and review of the fistulogram again today with Dr. Sanchez reveals that the cephalic vein is occluded in the proximal upper arm and empties by collaterals to the basilic vein. OBJECTIVE: LUNGS: Clear to auscultation. CARDIAC: Regular rate and rhythm without murmur or gallop. ABDOMEN: Soft and nontender. The patient denies having any abdominal pain. ASSESSMENT AND PLAN: There is no evidence of peritonitis. The patient did peritoneal dialysis last night without problems. Mechanically, the peritoneal dialysis is working well. The patient has a right upper arm fistula that cannot be used for dialysis access at this time. She will need to have a basilic vein transposition fistula for this to function. The patient does not want to go through this at this time, and she would rather have a dialysis catheter if she suffers problems related to her peritoneal dialysis and rather would have the dialysis catheter placed than to undergo a basilic vein transposition. At this point, I will see her as needed. Please call if necessary. Job ID: [id number]
[2019-03-06] MEDS ORDERED: Atorvastatin Calcium 10 MG TAB PO SCH (21:00)
[2019-03-07 06:40] LABS: Hemoglobin 11.7 g/dL (12.0-16.0); Mean Corpuscular Hemoglobin 33.1 pg (27.0-31.0); Mean Corpuscular Volume 97.4 fL (78.0-98.0); Mean Platelet Volume 7.1 fL (7.4-10.4); Platelet Count 229 thou/uL (130-400); RBC Distribution Width 12.8 % (11.5-14.5); Red Blood Cell (RBC) Count 3.54 mill/uL (4.20-5.40); White Blood Cell (WBC) Count 8.1 thou/uL (4.8-10.8)
[2019-03-07 06:58] LABS: Anion Gap 23 mmol/L (10-20); BUN (Urea Nitrogen) 53 mg/dL (9.8-20.1); Calc. Creatinine Clearance 5 mL/min (70-130); Calcium 9.4 mg/dL (7.8-10.44); Carbon Dioxide 23 mmol/L (23-31); Chloride 98 mmol/L (98-107); Estimated GFR-MDRD 3; Glucose 82 mg/dL (83-110); Potassium 4.7 mmol/L (3.5-5.1); Sodium 139 mmol/L (136-145)
--- NOTE | 2019-03-07 07:22 | PDOC.FM ---
- Subjective Subjective: Pt has no complaints this morning. No dysuria. 800 mL out per PD. PD fluid is clear. Denies abdominal pain/N/V. - Objective MAR Reviewed: Yes Vital Signs & Weight: Vital Signs (12 hours) Temp Pulse Resp BP BP Pulse Ox 03/06/19 20:20 122/57 L 03/06/19 20:00 98.1 F 70 18 122/57 L 94 L Weight Admit Weight 74.559 kg Weight 74.559 kg I&O: 03/06/19 03/07/19 03/08/19 06:59 06:59 06:59 Intake Total 480 2485 Output Total 297 Balance 480 2188 Result Diagrams: 03/07/19 05:42 03/07/19 05:42 Phys Exam - Physical Examination Constitutional: NAD HEENT: PERRLA, moist MMs, sclera anicteric Neck: no nodes, no JVD, supple, full ROM Respiratory: no wheezing, no rales, no rhonchi, clear to auscultation bilateral Cardiovascular: RRR, no rub 2/6 systolic murmur Gastrointestinal: soft, non-tender, positive bowel sounds slightly distended, but not tense. Musculoskeletal: no edema, pulses present Neurological: non-focal, normal sensation, moves all 4 limbs Lymphatic: no nodes Psychiatric: normal affect, A&O x 3 Skin: no rash (improvement from yesterday PE. ), normal turgor, cap refill <2 seconds Dx/Plan (1) Abnormal peritoneal fluid Code(s): R85.9 - UNSP ABNORMAL FINDING IN SPECIMENS FROM DGSTV ORG/ABD CAV Status: Acute (2) UTI (urinary tract infection) Status: Acute (3) ESRD (end stage renal disease) Code(s): N18.6 - END STAGE RENAL DISEASE Status: Acute (4) HLD (hyperlipidemia) Code(s): E78.5 - HYPERLIPIDEMIA, UNSPECIFIED Status: Acute (5) HTN (hypertension) Code(s): I10 - ESSENTIAL (PRIMARY) HYPERTENSION Status: Acute (6) History of nephrectomy, left Code(s): Z90.5 - ACQUIRED ABSENCE OF KIDNEY Status: Acute - Plan Plan: Pt is an 78 yo female who presents for cloudy peritoneal fluid, R groin pain admitted to medicine for further work up of infectious process and antibiotics. 1. Abnormal Peritoneal Fluid - Pt is stable. Denies abdominal pain, systemic symptoms but per family had cloudy peritoneal fluid. - PD fluid form overnight 03/07 is clear. - culture/gram stain: no WBC or cells seen. - Following nephro rec's, appreciate recommendations. - Rocephin daily, transition to PO once sensitivities result. - tylenol prn fever 2. ESRD - continue evening PD - continue home meds 3. UTI - UA evidence of UTI - continue abx as above - culture pending showing mixed bacteria to date, will transition pt to PO antibiotics once resulted sensitivities. - Procal 0.32 - CRP 3.27 4. HTN - continue home meds 5. HLD - continue home meds 6. GERD - continue home meds Fluids: none Diet: High Protein Code: Full Dispo: Stable, admit to medicine for abx administration. Addendum - Attending - Attending Attestation Date/Time: 03/07/19 7844 I personally evaluated the patient and discussed the management with Dr. Vallejo. I agree with the History, Examination, Assessment and Plan documented above with any addition or exceptions noted below. The patient continues to feel better. Awaiting urine culture sensitivities to narrow antibiotics.
[2019-03-07 07:36] LABS: Band 3 % (5-11); Eosinophils 3 % (0-10); Lymphocytes 40 % (21-51); MDiff Complete? YES; Monocytes 5 % (0-10); Myelocyte 1 % (0-0); Neutrophil 46 % (42-75); Platelet Morphology Comment Appears Adequate; Polychromasia SLIGHT = 2-3 cells (100X) (0-2/hpf); Reactive Lymphocytes 1 % (0-10)
[2019-03-07] MEDS: Anastrozole 1 MG TAB PO SCH (08:02)
[2019-03-07] MEDS: Carvedilol 6.25 MG TAB PO SCH (08:02)
[2019-03-07] MEDS: Sevelamer Carbonate 800 MG TAB PO SCH ×2 (08:02→13:02)
[2019-03-07] MEDS: Aspirin 81 mg Enteric Coated Tablet PO SCH (08:02)
[2019-03-07] MEDS: Amlodipine 10 MG TAB PO SCH (08:03)
[2019-03-07] MEDS: Gabapentin 100 MG CAP PO SCH (08:03)
[2019-03-07] MEDS: Cyanocobalamin (Vitamin B-12) 1,000 MCG TAB PO SCH (08:04)
[2019-03-07] MEDS: Ascorbic Acid 500 mg Chewable Tablet PO SCH (08:04)
[2019-03-07] MEDS: Lisinopril 2.5 MG TAB PO SCH (08:04)
[2019-03-07] MEDS: Multivit, Therapeutic 1 TAB PO SCH (08:05)
[2019-03-07] MEDS: Heparin 5,000 UNITS/ML VIAL SC SCH ×2 (08:05→16:56)
--- NOTE | 2019-03-07 10:12 | PRG ---
DATE OF SERVICE: 03/07/2019 SERVICE: Renal Medicine. SUBJECTIVE: Ms. Canales is an 78-year-old white female with ESRD and followed up by the Renal Service for her maintenance peritoneal dialysis. She is doing well with the current peritoneal dialysis. She was initially admitted for cloudy PD fluid. However, cultures, examination of the PD fluid all did not suggest any underlying peritonitis. This morning, she is feeling better. She denies any chest pain or shortness of breath. She has no abdominal pain. PD fluid was noted to be clear this morning. OBJECTIVE: VITAL SIGNS: Blood pressure 168/77, heart rate 76, respiratory rate 16, temperature 97.9, and pulse ox 96%. GENERAL: Awake, alert, comfortable, not in distress. SKIN: Adequate turgor. HEENT: She has a pinkish conjunctivae. Anicteric sclerae. NECK: No neck mass. No carotid bruits. No JVD. CHEST: No deformities. LUNGS: Clear breath sounds. No wheezing. No crackles. HEART: Normal sinus rhythm. No murmur. No gallops. No rubs. ABDOMEN: Globular, soft, and nontender. No masses. Positive for PD catheter. Nontender belly. EXTREMITIES: No edema. No deformities. MEDICATIONS: Medications of March 07, 2019, was reviewed. LABORATORY DATA: Laboratories of March 07, 2019; sodium 139, potassium 4.7, chloride 98, carbon dioxide 23, BUN 53, creatinine 10.7, glucose 82, and calcium 9.4. White count 8.1, hemoglobin 11.7. ASSESSMENT AND PLAN: 1. End-stage renal disease, stable. We will continue current CCPD regimen, tolerating said treatment. Ultrafiltration is also being tolerated. 2. Cloudy fluid - no evidence of any infection. The patient most likely does not have any peritonitis. All cultures have been negative to date. Okay for discharge at any time from a renal point of view. We will follow up this patient at the [facility]. Job ID: [id number]
[2019-03-07 16:57] VITALS: BP 121/76; TEMP 97.8
--- NOTE | 2019-03-08 03:40 | DIS ---
DATE OF ADMISSION: 03/05/2019 DATE OF DISCHARGE: 03/07/2019 ADMITTING ATTENDING: Dr. Pleitez DISCHARGE ATTENDING: Dr. Rosas RESIDENT: Carla Vallejo DO CONSULTS: Dr. Ponce, Nephrology. The patient is on chronic peritoneal dialysis for end-stage renal disease. PROCEDURES PERFORMED: Nightly peritoneal dialysis. DIAGNOSES: 1. Peritoneal fluid infection. 2. End-stage renal disease, on peritoneal dialysis. 3. Urinary tract infection. 4. Hypertension. 5. Hyperlipidemia. 6. Diastolic dysfunction. 7. Coronary artery disease. 8. History of breast cancer. 9. Normocytic anemia. DISCHARGE MEDICATIONS: 1. Acetaminophen 325, 1-2 tabs p.o. p.r.n. 2. Amlodipine 10 mg p.o. daily. 3. Anastrozole 1 mg p.o. daily. 4. Ascorbic acid 500 mg p.o. daily. 5. Aspirin 81 mg p.o. daily. 6. Carvedilol 6.25 mg p.o. b.i.d. 7. Vitamin D 2000 units p.o. daily. 8. Vitamin B12 of 1000 mcg p.o. daily. 9. Cyclobenzaprine 5 mg p.o. p.r.n. 10. Gabapentin 100 mg p.o. daily. 11. Lisinopril 2.5 mg p.o. daily. 12. Multivitamin one pill p.o. daily. 13. Omeprazole 20 mg p.o. q.a.m. 14. Zofran 4 mg p.o. q.6 hours p.r.n. 15. Pravastatin 40 mg p.o. at bedtime. 16. Renvela 800 mg p.o. t.i.d. with meals. 17. Keflex 500 mg PO once daily for 7 days. HISTORY OF PRESENT ILLNESS/HOSPITAL COURSE: The patient is an 78-year-old female on peritoneal dialysis for end-stage renal disease, came into the emergency department after finding her peritoneal dialysis fluid to be very cloudy. She also states that she has a little bit of pain with urination in the morning of 03/05, but denied any blood in her urine. Occasionally, urinates about twice a day at her baseline. Dr. Ponce's palpation while in hospital did not think that patient's peritoneal fluid was infected as the sample we studied in the hospital was clear. The patient did have UTI treated with Rocephin IV antibiotic therapy. The patient's culture grew out Klebsiella, as well as E coli sensitive to Keflex. The patient was discharged on Keflex 500 MG PO Daily. for seven days. Recommended to follow up with primary care in 1 week's time to check for resolution of any UTI symptoms. DISPOSITION: The patient was stable upon discharge and agreeable to the outpatient antibiotic therapy. DISCHARGE INSTRUCTIONS: 1. Location: Home with home health. 2. Diet: Renal diet, high-protein. 3. Activity: As tolerated. 4. Followup: Follow up with primary care in [address] Ponce. Job ID: [id number] MTDD
--- NOTE | 2019-03-09 05:42 | PQF ---
[employer] Sales Engagement Manager Crystal Reports Winform Viewer SHIRLEYNICOLLE SOUZA MD [phone] [id number] CLINICAL DOCUMENTATION CLARIFICATION FORM: POST DISCHARGE Addendum to original discharge summary date: ____ Late entry note date: __ DATE: 03/09/19 ATTN: Nicolle Bustamante Please exercise your independent, professional judgment in responding to the clarification form. Clinical indicators are provided on the bottom of this form for your review Can you please further clarify the diagnosis based on the clinical indicators below? Please check appropriate box(s): Conflicting documentation was noted in the Medical Record, please clarify if patient is being treated/monitored for: [ ] Peritoneal Fluid Infection [ ] Does not have any peritonitis [ x ] Abnormal peritoneal fluid [ ] Other diagnosis please specify [ ] Unable to determine In addition, please specify: Present on Admission (POA): [ x ] Yes [ ] No [ ] Unable to determine For continuity of documentation, please document condition throughout progress notes and discharge summary. Thank You. CLINICAL INDICATORS - SIGNS / SYMPTOMS/ LABS PN pg1 03/07 Dr. Ponce- cloudy fluid no evidence of any infection. The patient most likely does not have any peritonitis PN pg3 03/07 Dr. Vallejo-Abnormal peritoneal fluid. Denies abdominal pain, systemic symptoms but per family had cloudy peritoneal fluid PN pg1 03/06 Dr. Peng- There is no evidence of peritonitis. The patient did peritoneal dialysis last night without problems Consult pg1 03/06 Dr. Ponce- admitted due to complain of cloudy PD fluid RISK FACTORS ESRD- H&P 03/05 Dr. Murray HTN- H&P 03/05 Dr. Murray UTI- DS 03/07 Dr. Vallejo peritoneal dialysis dependent- H&P 03/05 Dr. Murray TREATMENT peritoneal dialysis- PN 03/06 Dr. [place] [facility] Consult- Consult 03/06 Dr. Kris SINGH Ceftriaxone- Mar 03/05/19 (This form is maintained as a part of the permanent medical record) 2014 [employer]. All Rights Reserved [email or web address] [not provided] MTDD
== END 2019-03-07 16:49 | disposition home or self-care (01) | DRG 947 ==
LOC: ERS 15:27 → T4-B 19:27
PROVIDERS: ADMIT Family Medicine; ATTEND Family Medicine
PROC: 3E1M39Z Irrigation of Peritoneal Cavity using Dialysate, Percutaneous Approach (ICD-10-PCS; principal; 2019-03-05)
DX: R85.9 Unspecified abnormal finding in specimens from digestive organs and abdominal cavity (principal); N18.6 End stage renal disease; N39.0 Urinary tract infection, site not specified; I13.2 Hypertensive heart and chronic kidney disease with heart failure and with stage 5 chronic kidney disease, or end stage renal disease; I50.32 Chronic diastolic (congestive) heart failure; E78.5 Hyperlipidemia, unspecified; I25.10 Atherosclerotic heart disease of native coronary artery without angina pectoris; D63.1 Anemia in chronic kidney disease; B96.1 Klebsiella pneumoniae [K. pneumoniae] as the cause of diseases classified elsewhere; B96.20 Unspecified Escherichia coli [E. coli] as the cause of diseases classified elsewhere; E89.2 Postprocedural hypoparathyroidism; E87.5 Hyperkalemia; Z85.3 Personal history of malignant neoplasm of breast; Z99.2 Dependence on renal dialysis; Z90.5 Acquired absence of kidney; Z91.013 Allergy to seafood; Z88.8 Allergy status to other drugs, medicaments and biological substances; Z79.82 Long term (current) use of aspirin; Z79.899 Other long term (current) drug therapy
CPT/HCPCS: 36415; 51701; 80048; 80053; 81003; 81015; 83605; 83690; 84145; 85007; 85025; 85027; 86140; 87040; 87070; 87077; 87086; 87186; 87205; 89051; 96365; 96375; A4353; J0696; J1580; J1644; J3490

== ENCOUNTER 2019-06-21 13:06 | Day surgery (SDC) | payer MEDICARE, MEDICAID ==
[2019-06-21 14:01] LABS: #Eosinphils 0.3 thou/uL (0.0-0.7); #Lymphocytes 2.3 thou/uL (1.20-3.40); #Monocytes 1.2 thou/uL (0.11-0.59); #Neutrophils 10.6 thou/uL (1.40-6.50); %Basophils 0.2 % (0.0-1.0); %Eosinophils 2.3 % (0.0-10.0); %Lymphocytes 15.7 % (21.0-51.0); %Neutrophils 73.8 % (42.0-75.0); Hemoglobin 7.5 g/dL (12.0-16.0); Mean Platelet Volume 6.5 fL (7.4-10.4); Platelet Count 328 thou/uL (130-400); RBC Distribution Width 13.3 % (11.5-14.5); Red Blood Cell (RBC) Count 2.19 mill/uL (4.20-5.40); White Blood Cell (WBC) Count 14.4 thou/uL (4.8-10.8)
[2019-06-21 14:33] LABS: ALT (SGPT) 9 U/L (8-55); AST (SGOT) 18 U/L (5-34); Albumin 4.1 g/dL (3.4-4.8); Alkaline Phosphatase 47 U/L (40-110); Anion Gap 27 mmol/L (10-20); BUN (Urea Nitrogen) 62 mg/dL (9.8-20.1); Bilirubin, Total 0.5 mg/dL (0.2-1.2); Calc. Creatinine Clearance 0 mL/min (70-130); Calcium 9.8 mg/dL (7.8-10.44); Carbon Dioxide 20 mmol/L (23-31); Chloride 94 mmol/L (98-107); Estimated GFR-MDRD 3; Globulin 4.1 g/dL (2.4-3.5); Glucose 93 mg/dL (83-110); Potassium 5.2 mmol/L (3.5-5.1); Protein, Total 8.2 g/dL (6.0-8.3); Sodium 136 mmol/L (136-145)
[2019-06-21 18:01] VITALS: BMI 31.1
[2019-06-21 21:58] VITALS: BP 119/72; TEMP 98.4
== END 2019-06-21 22:08 | disposition home or self-care (01) ==
LOC: ERS 13:06 → SURG A 16:42 → ERS 17:06 → SDC 17:07 → SURG A 17:08 → SDC 22:08
PROVIDERS: ATTEND Internal Medicine Nephrology
PROC: 30233N1 Transfusion of Nonautologous Red Blood Cells into Peripheral Vein, Percutaneous Approach (ICD-10-PCS; principal; 2019-06-21)
DX: I12.0 Hypertensive chronic kidney disease with stage 5 chronic kidney disease or end stage renal disease (principal); N18.6 End stage renal disease; D63.1 Anemia in chronic kidney disease; N25.81 Secondary hyperparathyroidism of renal origin; D50.9 Iron deficiency anemia, unspecified; E78.5 Hyperlipidemia, unspecified; Z79.82 Long term (current) use of aspirin; Z79.899 Other long term (current) drug therapy; Z91.013 Allergy to seafood; Z91.041 Radiographic dye allergy status; Z99.2 Dependence on renal dialysis
CPT/HCPCS: 36430; 80053; 85025; 86850; 86900; 86901; 86920; P9016; 36415

== ENCOUNTER 2019-10-16 09:19 | Observation (INO) | payer MEDICARE, MEDICAID ==
[2019-10-16] MEDS ORDERED: Ondansetron PF 4 MG/2 ML Vial ONE (09:56)
--- NOTE | 2019-10-16 10:05 | CT ---
CT HEAD WITHOUT IV CONTRAST COMPARISON: 9 HISTORY: Trauma. Weakness for 2 weeks. Patient states fell backwards from standing position and hit head. Pat ient reports loss of consciousness and vomiting. TECHNIQUE: Axial CT imaging at 5 mm intervals from vertex through skull base without contrast FINDINGS: Scattered areas of diminished attenuation are seen in the periventricular white matter which are nons pecific but likely reflective of mild chronic small vessel ischemic changes. Low-density focus is seen in the inferior aspect left basal ganglia which is nonspecific but likely related to lacunar inf arction of indeterminate age. Mild cerebral volume loss is present. There is no evidence of an acute infarction, hemorrhage, mass effect, or midline shift. The ventricular system is normal in size , shape, and position. Mucosal thickening is present in the right sphenoid sinus with increased density seen. This may be re late to inspissated secretions versus fungal infection. Visualized mastoid air cells are clear. Osseous structures appear intact. No depressed calvarial fracture is seen. Minimal subcutaneous soft tissue swelling is seen in the left occipital scalp soft tissues. IMPRESSION: 1. No acute intracranial abnormality demonstrated. 2. Lacunar infarction left basal ganglia of indeterminate age. 3. Chronic small vessel ischemic changes and cerebral volume loss. 4. Sinus disease right sphenoid sinus with increased density which may be related to inspissated secr etions versus fungal infection.
[2019-10-16 10:07] LABS: #Eosinphils 0.2 thou/uL (0.0-0.7); #Lymphocytes 1.6 thou/uL (1.20-3.40); #Neutrophils 12.7 thou/uL (1.40-6.50); %Basophils 0.3 % (0.0-1.0); %Eosinophils 1.4 % (0.0-10.0); %Monocytes 6.5 % (0.0-10.0); %Neutrophils 81.9 % (42.0-75.0); Hemoglobin 11.9 g/dL (12.0-16.0); Mean Corpuscular HGB CONC 31.6 g/dL (32.0-36.0); Mean Corpuscular Volume 98.1 fL (78.0-98.0); Platelet Count 325 thou/uL (130-400); RBC Distribution Width 14.7 % (11.5-14.5); Red Blood Cell (RBC) Count 3.85 mill/uL (4.20-5.40); White Blood Cell (WBC) Count 15.5 thou/uL (4.8-10.8)
[2019-10-16 10:22] LABS: Phosphorus 3.6 mg/dL (2.3-4.7)
[2019-10-16 10:26] LABS: ALT (SGPT) 12 U/L (8-55); AST (SGOT) 17 U/L (5-34); Albumin 2.8 g/dL (3.4-4.8); Alkaline Phosphatase 57 U/L (40-110); Anion Gap 16 mmol/L (10-20); BUN (Urea Nitrogen) 17 mg/dL (9.8-20.1); Bilirubin, Total 0.6 mg/dL (0.2-1.2); CK (CPK) 27 U/L (29-168); Calc. Creatinine Clearance 0 mL/min (70-130); Calcium 8.7 mg/dL (7.8-10.44); Carbon Dioxide 26 mmol/L (23-31); Chloride 100 mmol/L (98-107); Estimated GFR-MDRD 5; Globulin 3.6 g/dL (2.4-3.5); Glucose 137 mg/dL (83-110); Magnesium 1.4 mg/dL (1.6-2.6); Protein, Total 6.4 g/dL (6.0-8.3); Sodium 140 mmol/L (136-145)
[2019-10-16 10:32] LABS: Potassium 2.4 mmol/L (3.5-5.1)
[2019-10-16 10:47] LABS: CKMB 0.7 ng/mL (0-6.6)
--- NOTE | 2019-10-16 11:30 | RAD ---
CHEST 1 VIEW PORTABLE: HISTORY: Weakness for several weeks. Fell backwards from standing. Vomiting. COMPARISON: 08/26/2018. FINDINGS: Mild cardiomegaly. Bilateral vascular congestion with some costophrenic angle blunting, probable sma ll pleural effusions. Evidence for hiatal hernia. Surgical clips in the right axillary and chest wa ll region. No confluent pneumonia. IMPRESSION: Bilateral vascular congestion and probable small pleural effusions. Evidence for hiatal hernia. Bor derline heart size. Atherosclerosis of the aorta. No confluent pneumonia. POS: C
[2019-10-16] MEDS ORDERED: Magnesium 2 GM/50 ML BAG (IN WATER) ONE (11:55)
[2019-10-16] MEDS ORDERED: cefTRIAXone\\ROCEPHIN 1 GM VIAL ONE (11:55)
[2019-10-16] MEDS ORDERED: Potassium Chloride 40 MEQ in Sodium Chloride 0.9% 250 ML 250 ML IVPB SCH (12:00)
--- NOTE | 2019-10-16 12:07 | PDOC.FPRHP ---
- History of Present Illness Chief Complaint: Syncope History of Present Illness: 78-year-old female with hx of end stage renal disease presented to the ER today with some kind of generalized weakness and recent fall. She stated that for the past two weeks she has been very fatigued and had a mildly decreased appetite. She stated that today she was planning to see her doctor about these symptoms and was getting up to leave and upon standing had a syncopal episode and struck her head. This was witnessed by her son who she lives with. Patient was easily aroused and then subsequently brought to the emergency department by ambulance. Patient denies any history of syncope or heart arrhythmias. She has been on peritoneal dialysis since the beginning of 2019. Her end-stage renal disease is due to a left nephrectomy and right vesicoureteral reflux. She denies any recent complications with her home peritoneal dialysis. This is managed by Dr. Ponce who she last saw about a month ago. ED Course: Head CT showing old infarcts and small vessel changes. Found to be hypokalemic at 2.4. Purulent urine in small amount w/ WBC 15. Received 1 g Rocephin, 40 meq potassium, 2g Mg. - Allergies/Adverse Reactions Allergies Allergy/AdvReac Type Severity Reaction Status Date / Time Iodine and Iodide Containing Allergy Short of Verified 08/26/19 20:25 Produc Breath shellfish derived Allergy Short of Verified 08/26/19 20:25 Breath - Home Medications Medication Instructions Recorded Confirmed Type Anastrozole [Arimidex] 1 mg PO DAILY 05/29/14 10/16/19 History Pravastatin Sodium 40 mg PO HS 08/30/18 10/16/19 History Omeprazole 1 capsule PO QAM 09/02/18 10/16/19 History Sevelamer Carbonate [Renvela] 800 mg PO TID- 30 Days #90 tab 09/05/18 Rx Acetaminophen [Tylenol] 1 - 2 tab PO PRN PRN 03/05/19 10/16/19 History Carvedilol 25 mg PO BID 03/05/19 10/16/19 History - History PMHx: HTN, HLD, Diastolic HF, Peritoneal Dialysis - ESRD, Breast cancer, R Kidney Reflux PSHx: L Nephrectomy, Hysterectomy, Cholecystectomy, Appendectomy, Parathyroidectomy FHx: non-contributory Social: denies smoking, alcohol, drug use; lives with son - Review of Systems General: reports: weight/appetite/sleep changes. denies: fever/chills, fatigue Eyes: denies: vision changes, other ENT: denies: rhinorrhea, other Respiratory: denies: cough, shortness of breath Cardiovascular: denies: chest pain, palpitation Gastrointestinal: denies: nausea, vomiting, diarrhea Genitourinary: reports: other (near anuria). denies: dysuria Skin: reports: rashes. denies: lesions Musculoskeletal: denies: pain, tenderness Neurological: reports: syncope. denies: numbness, weakness Psychological: denies: depression, other - Vital signs BP: 117/58, MAP: 77, Pulse: 75, Resp: 25 (Non-Labored), Temp: 97.6 (Oral), Pain : 0, O2 sat: 99 on (Room Air), Wt: 77kg - Physical Exam Constitutional: NAD, awake, alert and oriented HEENT: EOMI, MMM Neck: supple, FROM Heart: RRR, normal S1/S2 Lungs: CTAB, no respiratory distress Abdomen: soft, non-tender -Abdomen: mildly distended Musculoskeletal: normal structure, normal tone Neurological: no focal deficit, normal sensation Skin: capillary refill <2 seconds -Skin: pin point scabbed rash that is diffuse to upper thorax and extremities Heme/Lymphatic: no unusual bruising or bleeding, no purpura Psychiatric: normal mood and affect, good judgment and insight FMR H&P: Results - Labs Result Diagrams: 10/16/19 09:48 10/16/19 09:48 Lab results: WBC 15.5 thou/uL (4.8-10.8) H 10/16/19 09:48 Hgb 11.9 g/dL (12.0-16.0) L 10/16/19 09:48 Hct 37.8 % (36.0-47.0) 10/16/19 09:48 MCV 98.1 fL (78.0-98.0) H 10/16/19 09:48 Plt Count 325 thou/uL (130-400) 10/16/19 09:48 Neutrophils % 81.9 % (42.0-75.0) H 10/16/19 09:48 Sodium 140 mmol/L (136-145) 10/16/19 09:48 Potassium 2.4 mmol/L (3.5-5.1) L* 10/16/19 09:48 Chloride 100 mmol/L (98-107) 10/16/19 09:48 Carbon Dioxide 26 mmol/L (23-31) 10/16/19 09:48 BUN 17 mg/dL (9.8-20.1) 10/16/19 09:48 Creatinine 8.02 mg/dL (0.6-1.1) H 10/16/19 09:48 Glucose 137 mg/dL (83-110) H 10/16/19 09:48 Calcium 8.7 mg/dL (7.8-10.44) 10/16/19 09:48 Total Bilirubin 0.6 mg/dL (0.2-1.2) 10/16/19 09:48 AST 17 U/L (5-34) 10/16/19 09:48 ALT 12 U/L (8-55) 10/16/19 09:48 Alkaline Phosphatase 57 U/L (40-110) 10/16/19 09:48 Creatine Kinase 27 U/L (29-168) L 10/16/19 09:48 CK-MB (CK-2) 0.7 ng/mL (0-6.6) 10/16/19 09:48 Serum Total Protein 6.4 g/dL (6.0-8.3) 10/16/19 09:48 Albumin 2.8 g/dL (3.4-4.8) L 10/16/19 09:48 - EKG Interpretation EK Lead EKG: nonspecific ST and T wave abnormalities. T waves are flat. Artifact limits interpretation. - Radiology Interpretation Chest x-ray Status: report reviewed by me (Bilateral vascular congestion and probable small pleural effusions. Evidence for hiatal hernia. Borderline heart size. Atherosclerosis of the aorta. No confluent pneumonia.) CT scan - head Status: report reviewed by me (1. No acute intracranial abnormality demonstrated. 2. Lacunar infarction left basal ganglia of indeterminate age. 3. Chronic small vessel ischemic changes and cerebral volume loss. 4. Sinus disease right sphenoid sinus with increased density which may be related to inspissated secretions versus fungal infection.) FMR H&P: A/P - Problem List (1) Hypokalemia Current Visit: Yes Status: Acute Code(s): E87.6 - HYPOKALEMIA (2) Hypomagnesemia Current Visit: Yes Status: Acute Code(s): E83.42 - HYPOMAGNESEMIA (3) ESRD (end stage renal disease) Current Visit: No Status: Acute Code(s): N18.6 - END STAGE RENAL DISEASE (4) HLD (hyperlipidemia) Current Visit: No Status: Acute Code(s): E78.5 - HYPERLIPIDEMIA, UNSPECIFIED (5) HTN (hypertension) Current Visit: No Status: Acute Code(s): I10 - ESSENTIAL (PRIMARY) HYPERTENSION (6) History of nephrectomy, left Current Visit: No Status: Acute Code(s): Z90.5 - ACQUIRED ABSENCE OF KIDNEY (7) UTI (urinary tract infection) Current Visit: No Status: Acute - Plan Hypokalemia in setting of ESRD on Peritoneal Dialysis - 40 meq IV given in ED, additional 40 PO ordered, BMP repeat tonight - Dr. Ponce consulted from ED and plans to adjust peritoneal dialysis, appreciate recs Hypomagnesemia - Replaced 2g Mg in ED - Monitor with am labs Syncope - Likely orthostatic hypotension based on history - admit to tele - monitor BP and adjust rx as indicated Hx of Breast CA - continue anastrazole HTN - Cont carvedilol BID Diet: HH IVF: SL VTE: Heparin TID Dispo: Admit to tele obs for monitoring and electrolyte replacement. ELOS < 48hr PCP: Dr. Olsen FMR H&P: Upper Level - Plan Date/Time: 10/16/19 1371 I, Josh Fuentes MD, have evaluated this patient and agree with findings/ plan as outlined by continuous improvement intern resident. Pertinent changes/additions are listed here. Hypokalemia - On admission 2.4 - IV and PO repletion - Nephrology consulted for PD changes ESRD on PD - Recommendations per Dr. Ponce Concern for UTI - No sample available for culture - Low concern - Empiric Rocephin in reference to previous urine culture results PCP: Dr. Soria CODE STATUS: DNAR Disposition: Stable, will admit to telemetry observation for electrolyte correction. Addendum - Attending - Attending Attestation Date/Time: 10/16/19 2135 I personally evaluated the patient and discussed the management with Dr. Craft. I agree with the History, Examination, Assessment and Plan documented above with any addition or exceptions noted below. Patient here for weakness and hypokalemia. Nephro on board. Replete K and possible adjustments to PD dialysate. PT.
[2019-10-16] MEDS ORDERED: Potassium Chloride 20 MEQ TAB PO SCH ×2 (14:13→21:00)
[2019-10-16] MEDS ORDERED: Acetaminophen 325 MG TAB PO PRN (14:13)
[2019-10-16] MEDS: Heparin 5,000 UNITS/ML VIAL SC SCH ×2 (14:58→21:33)
[2019-10-16 15:17] LABS: Troponin I 0.158 ng/mL (< 0.028)
[2019-10-16 20:21] LABS: Anion Gap 16 mmol/L (10-20); BUN (Urea Nitrogen) 19 mg/dL (9.8-20.1); Calc. Creatinine Clearance 6 mL/min (70-130); Calcium 8.8 mg/dL (7.8-10.44); Carbon Dioxide 25 mmol/L (23-31); Chloride 101 mmol/L (98-107); Estimated GFR-MDRD 5; Glucose 93 mg/dL (83-110); Potassium 3.3 mmol/L (3.5-5.1); Sodium 139 mmol/L (136-145)
[2019-10-16] MEDS ORDERED: Atorvastatin Calcium 10 MG TAB PO SCH (21:00)
[2019-10-16] MEDS: Carvedilol 25 MG TAB PO SCH (21:34)
[2019-10-16 21:47] LABS: HBSAg Index 0.15 S/CO (0-0.99); Hep B Core Total Ab Non-Reactive (NonReactive); Hep B Core Total Index 0.29 S/CO (0-0.79); Hep B Surf Ag Non-Reactive S/CO (NonReactive); Hep C IgG Ab Non-Reactive (NonReactive)
[2019-10-16 23:01] LABS: HBSAB Concentration 9.82 mIU/mL
[2019-10-16 23:02] LABS: Hep B Surf AB Indeterminate (NonReactive)
[2019-10-17] MEDS ORDERED: Glycerin Adult Supp. (12 ct jar) PR PRN (02:40)
[2019-10-17] MEDS ORDERED: Polyethylene Glycol 3350 17 GM Packet PO SCH ×2 (03:00→09:00)
[2019-10-17] MEDS: Ondansetron ODT 8 MG TAB SL PRN ×2 (04:08→13:45)
[2019-10-17 05:23] LABS: #Eosinphils 0.2 thou/uL (0.0-0.7); #Lymphocytes 1.5 thou/uL (1.20-3.40); #Monocytes 0.9 thou/uL (0.11-0.59); #Neutrophils 9.5 thou/uL (1.40-6.50); %Basophils 0.2 % (0.0-1.0); %Eosinophils 1.5 % (0.0-10.0); %Lymphocytes 12.6 % (21.0-51.0); %Monocytes 7.6 % (0.0-10.0); %Neutrophils 78.1 % (42.0-75.0); Hemoglobin 11.3 g/dL (12.0-16.0); Mean Corpuscular HGB CONC 32.4 g/dL (32.0-36.0); Mean Corpuscular Hemoglobin 31.9 pg (27.0-31.0); Mean Corpuscular Volume 98.3 fL (78.0-98.0); Mean Platelet Volume 7.1 fL (7.4-10.4); Platelet Count 289 thou/uL (130-400); RBC Distribution Width 14.9 % (11.5-14.5); Red Blood Cell (RBC) Count 3.53 mill/uL (4.20-5.40); White Blood Cell (WBC) Count 12.2 thou/uL (4.8-10.8)
[2019-10-17 05:34] LABS: Anion Gap 18 mmol/L (10-20); BUN (Urea Nitrogen) 19 mg/dL (9.8-20.1); Calc. Creatinine Clearance 6 mL/min (70-130); Calcium 8.7 mg/dL (7.8-10.44); Carbon Dioxide 24 mmol/L (23-31); Chloride 102 mmol/L (98-107); Estimated GFR-MDRD 5; Glucose 117 mg/dL (83-110); Magnesium 1.9 mg/dL (1.6-2.6); Potassium 3.1 mmol/L (3.5-5.1); Sodium 141 mmol/L (136-145)
--- NOTE | 2019-10-17 06:29 | PDOC.FM ---
- Subjective Subjective: No events overnight. Pt expresses no concerns this morning. Denies any difficulties with peritoneal dialysis overnight. States she is feeling better than she was upon admission. - Objective Vital Signs & Weight: Vital Signs (12 hours) Temp Pulse Resp BP Pulse Ox 10/17/19 03:10 97.6 F 62 14 120/56 L 94 L 10/16/19 23:59 98.1 F 71 16 119/55 L 90 L 10/16/19 19:08 98.1 F 75 16 116/59 L 95 Weight Weight 72.7 kg I&O: 10/15/19 10/16/19 10/17/19 06:59 06:59 06:59 Intake Total 100 Output Total 0 Balance 100 Result Diagrams: 10/17/19 04:54 10/17/19 04:54 Phys Exam - Physical Examination Constitutional: NAD HEENT: moist MMs Respiratory: clear to auscultation bilateral Cardiovascular: RRR Musculoskeletal: no edema, pulses present Neurological: moves all 4 limbs Psychiatric: normal affect Skin: cap refill <2 seconds Dx/Plan (1) Hypokalemia Code(s): E87.6 - HYPOKALEMIA Status: Acute (2) Hypomagnesemia Code(s): E83.42 - HYPOMAGNESEMIA Status: Acute (3) ESRD (end stage renal disease) Code(s): N18.6 - END STAGE RENAL DISEASE Status: Acute (4) HLD (hyperlipidemia) Code(s): E78.5 - HYPERLIPIDEMIA, UNSPECIFIED Status: Acute (5) HTN (hypertension) Code(s): I10 - ESSENTIAL (PRIMARY) HYPERTENSION Status: Acute (6) History of nephrectomy, left Code(s): Z90.5 - ACQUIRED ABSENCE OF KIDNEY Status: Acute (7) UTI (urinary tract infection) Status: Acute - Plan Plan: Hypokalemia in setting of ESRD on Peritoneal Dialysis - Levels increased to 3.3 last night and then down to 3.1 this morning after dialysis - Will replace orally this morning - Dr. Ponce consulted, appreciate recs Hypomagnesemia - Replaced 2g Mg in ED - 1.9 this morning Syncope - Likely orthostatic hypotension based on history - No cardiac events on tele overnight, BP remained WNL Hx of Breast CA - continue anastrazole HTN - Cont carvedilol BID Diet: HH IVF: SL VTE: Heparin TID Dispo: Tele obs for peritoneal dialysis titration and potassium replacement. PCP: Dr. Olsen Addendum - Attending - Attending Attestation Date/Time: 10/17/19 1121 I personally evaluated the patient and discussed the management with Dr. Craft. I agree with the History, Examination, Assessment and Plan documented above with any addition or exceptions noted below. Patient stable. Potassium improved but still needs some repletion. Nephro on board. Hopeful dc in next day or so.
[2019-10-17] MEDS ORDERED: Potassium Chloride 20 MEQ TAB PO SCH (07:00)
[2019-10-17 07:25] LABS: Troponin I 0.145 ng/mL (< 0.028)
[2019-10-17] MEDS: Carvedilol 25 MG TAB PO SCH (08:13)
[2019-10-17] MEDS: Heparin 5,000 UNITS/ML VIAL SC SCH (08:14)
[2019-10-17] MEDS ORDERED: Anastrozole 1 MG TAB PO SCH (09:00)
--- NOTE | 2019-10-17 10:40 | CON ---
DATE OF CONSULTATION: HISTORY OF PRESENT ILLNESS: Ms. 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 She had a head contusion. A CT scan of the head was done, which showed no acute intracranial abnormality. In addition, chest x-ray showed increased lung markings/? of mild volume overload. The patient did not lose any consciousness during the said incident. We are following up this patient for management of her ESRD. She underwent peritoneal dialysis last night without difficulty. There was some leakage around the catheter site, but this was related to the connection. The patient voices no new complaints today. REVIEW OF SYSTEMS: No syncopal episode. No headache. Appetite is fair. Energy level is fair. No nausea. No vomiting. No fever or chills. No productive cough. No abdominal pain. No gross hematuria. No dysuria. MEDICATIONS: 1. Arimidex 1 mg p.o. daily. 2. Pravastatin 40 mg tab at bedtime. 3. Omeprazole q.a.m. 4. Renvela 800 mg 1 tablet t.i.d. with meals. 5. Acetaminophen p.r.n. 6. Carvedilol 25 mg p.o. b.i.d. PAST MEDICAL HISTORY: 1. 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 2. ESRD. 3. Breast cancer, in remission. 4. History of CHF from diastolic dysfunction. 5. Hypertension. 6. Hyperlipidemia. PAST SURGICAL HISTORY: The patient is; 1. Status post left nephrectomy. 2. Status post hysterectomy. 3. Status post parathyroidectomy. 4. Status post cuffed hemodialysis catheter placement. 5. Status post PD catheter placement. 6. Status post breast biopsy. 7. Status post mastectomy. 8. Status post cholecystectomy. 9. Status post appendectomy. 10. Status post tonsillectomy. SOCIAL HISTORY: The patient is , several children. Lives in [place]. No history of smoking. No alcohol. Education, high school. No blood transfusion. No IV drug abuse. ALLERGIES: NONE. TRAUMA: None. IMMUNIZATIONS: Up to date. HOSPITALIZATIONS: Please see past medical history. FAMILY HISTORY: No family history of ESRD. PHYSICAL EXAMINATION: VITAL SIGNS: Blood pressure is 170/67, heart rate 73, respiratory rate 18, temperature 97.4, pulse ox 95%. GENERAL: Awake, alert, comfortable, not in distress. SKIN: Adequate turgor. HEENT: Pinkish conjunctivae. Anicteric sclerae. No neck mass. No carotid bruits. No JVD. CHEST: No deformities. LUNGS: Decreased breath sounds. HEART: Normal sinus rhythm. No murmur. No gallops. No rubs. ABDOMEN: Globular, soft, nontender. No masses. Positive for PD catheter. EXTREMITIES: No edema. NEUROLOGICAL: Awake, oriented to 3 spheres. Moving all extremities. No tremors. No asterixis. LABORATORY DATA: Laboratories on October 17, 2019; white count 12.2, hemoglobin 11.3. Sodium 141, potassium 3.1, chloride 102, carbon dioxide 24, BUN 19, creatinine 8.34, calcium 8.7. Troponin-I 0.145. DIAGNOSTIC DATA: CT scan of the brain, no acute intracranial abnormality. Chest x-ray, increased lung markings. ASSESSMENT AND PLAN: 1. End-stage renal disease, stable. Due to the increased lung markings and mild CHF, we will change PD regimen from 1.5% PD solution to an alternating 1.5/2.5% PD solution. This was instructed with the patient just in case she is discharged today. 2. Status post fall/head contusion. CT scan of the head showed no acute intracranial abnormality. Continue current management. Continue supportive care. 3. Mild hypokalemia, p.r.n. potassium replacement. 4. Agree with current management. ADDENDUM: Review of her last Kt/V suggests the patient is adequately dialyzed with the current dialysis regimen. Job ID: [id number]
[2019-10-17 11:50] VITALS: BP 131/62; TEMP 98.6
[2019-10-17] MEDS ORDERED: cefTRIAXone\\ROCEPHIN 1 GM in Sodium Chloride 0.9% 100 ML IVPB SCH (12:00)
[2019-10-17] MEDS ORDERED: Sevelamer Carbonate 800 MG TAB PO SCH (12:00)
[2019-10-17 14:27] VITALS: BMI 29.2
[2019-10-17] MEDS ORDERED: Prevnar 13-Val Conj/PF 0.5 ML SYRINGE IM ONE (14:30)
--- NOTE | 2019-10-18 02:34 | DIS ---
DATE OF ADMISSION: 10/16/2019 DATE OF DISCHARGE: 10/17/2019 ADMITTING ATTENDING: Jose Armando Pleitez MD DISCHARGE ATTENDING: Jose Armando Pleitez MD RESIDENT: Jose David Craft DO CONSULTS: Nephrology, Dr. Kolby Ponce. PROCEDURES: None. IMAGING: Chest x-ray, 10/15, impression, bilateral vascular congestion and probable small pleural effusions. Evidence of hiatal hernia. Borderline heart size. Atherosclerosis of aorta. No confluent pneumonia. Brain CT, 10/16/2019, impression, no acute intracranial abnormality demonstrated. Lacunar infarction, left basal ganglia of indeterminate age. Chronic small- vessel ischemic changes and cerebral volume loss. Sinus disease, right sphenoid sinus with increased density, which may be related to inspissated secretions versus fungal infection. PRIMARY DIAGNOSES: 1. Hypokalemia. 2. End-stage renal disease-peritoneal dialysis with volume overload. 3. Hypomagnesemia. 4. Syncope. 5. Urinary Tract Infection SECONDARY DIAGNOSES: 1. Hypertension. 2. Hyperlipidemia. DISCHARGE MEDICATIONS: 1. Anastrozole 1 mg daily. 2. Pravastatin 40 mg at bedtime. 3. Omeprazole 20 mg daily. 4. Renvela 800 mg t.i.d. with meals. 5. Tylenol 325 mg 1-2 tabs p.o. p.r.n. q.4 hours. 6. Coreg 25 mg b.i.d. 7. K-Dur 20 mEq daily. HISTORY OF PRESENT ILLNESS AND HOSPITAL COURSE: This is an 78-year-old female with past medical history of end-stage renal disease, status post left nephrectomy with chronic right renal reflux, who was on peritoneal dialysis. She presents to the ER after 2 weeks of feeling fatigued and a syncopal episode that morning. Based on history, this syncopal episode was likely related to an orthostatic hypotensive episode. Workup in the ER was significant for a head CT with chronic findings, chest x-ray showing mild to moderate vascular congestion, and labs revealing a potassium of 2.4 and a magnesium of 1.4. She makes little urine but was straight cathed and found to have a scant amount of turbid looking urine so was started on rocephin to cover her for UTI which she used to get frequently. The patient was given electrolyte replacement and subsequently admitted to the hospital. Dr. Ponce, the patient's dandy operator, was consulted upon the patient's admission. During the patient's stay, her electrolytes were repleted to appropriate levels and her dialysis was adjusted by Dr. Ponce. Following day after her admission, the patient stated that she was feeling much better, tolerating p.o., and feeling ready for discharge. Prior to discharge, she was instructed on her peritoneal dialysis changes and expressed understanding. She agreed to follow up with Dr. Ponce in his office as scheduled this coming Wednesday. DISCHARGE INSTRUCTIONS: 1. Location: Home. 2. Diet: Renal. 3. Activity: As tolerated by cardiopulmonary limits. 4. Followup: PCP, Dr. Soria within [address] Ponce, Moth Proofer this Wednesday as scheduled. Job ID: [id number] MTDD
== END 2019-10-17 14:55 | disposition home or self-care (01) ==
LOC: ERS 09:19 → 2SE 13:56
PROVIDERS: ADMIT Student in an Organized Health Care Education/Training Program; ATTEND Student in an Organized Health Care Education/Training Program
DX: R55 Syncope and collapse (principal); E87.6 Hypokalemia; N13.721 Vesicoureteral-reflux with reflux nephropathy without hydroureter, unilateral; N18.6 End stage renal disease; E83.42 Hypomagnesemia; N39.0 Urinary tract infection, site not specified; I11.0 Hypertensive heart disease with heart failure; I50.30 Unspecified diastolic (congestive) heart failure; R53.1 Weakness; E78.5 Hyperlipidemia, unspecified; R53.83 Other fatigue; S00.93XA Contusion of unspecified part of head, initial encounter; E89.2 Postprocedural hypoparathyroidism; J32.3 Chronic sphenoidal sinusitis; I63.81 Other cerebral infarction due to occlusion or stenosis of small artery; E87.70 Fluid overload, unspecified; I70.0 Atherosclerosis of aorta; Z66 Do not resuscitate; Z85.3 Personal history of malignant neoplasm of breast; Z79.811 Long term (current) use of aromatase inhibitors; Z79.899 Other long term (current) drug therapy; Z91.013 Allergy to seafood; Z91.041 Radiographic dye allergy status; Z90.5 Acquired absence of kidney; Z99.2 Dependence on renal dialysis; W01.10XA Fall on same level from slipping, tripping and stumbling with subsequent striking against unspecified object, initial encounter
CPT/HCPCS: 70450; 71045; 80048 ×2; 82550; 82553; 83735 ×2; 84100; 84484 ×3; 85025; 86704; 86706; 86803; 87340; 93005; 96365; 96367; 96372 ×2; 96375; 97139 ×2; 99285; G0378 ×3; 36415; 80053; 84443; 90945; A4353; G0257; J0696; J1644; J2405; J3475; J3480; J7050; Q0162

== ENCOUNTER 2019-10-23 16:36 | Observation (INO) | payer MEDICARE, MEDICAID ==
--- NOTE | 2019-10-23 19:20 | PDOC.FPRHP ---
- History of Present Illness Chief Complaint: n/v/d History of Present Illness: Patient is a 79F with a PMHx of ESRD on peritoneal dialysis, anemia, GERD, Hypertension, diastolic HF, HTN, HLD, hx of breast cancer that presented to the ED in [place] after several weeks of n/v/d per patient. Patient is a poor historian. She reports that she has had n/v/d for a few weeks , denies hematemesis, hematochezia, melena, fever, sob, cough. She denies sick contacts. She states that every night at 6pm her son helps her with her peritoneal dialysis. She denies that she has missed any days. She states she sees her lime mixer, Dr. Ponce, every other week. Per ED, Dr. Hyde, Dr. Ponce has been notified and a nurse is being sent to assist patient with peritoneal dialysis and pull fluid off for culture. Patient received 1g rocephin in outside ED at 1500. Talking to the patient's son, Coleman ([phone]), he reports that her PD fluid is intermittently cloudy but has been since she started PD in 2019. On He reports she used to be on HD and then transitioned to PD because she had difficulty with per ports during HD. Dialysis required due to patient's hx of L nephrectomy and R vesicoureteral reflux. He states she has had n/v/d for the last 3 weeks. Denies fevers. Denies missing PD any day. ED Course: zofran, 1L NS, 1g rocephin - Allergies/Adverse Reactions Allergies Allergy/AdvReac Type Severity Reaction Status Date / Time Iodine and Iodide Containing Allergy Short of Verified 08/26/19 20:25 Produc Breath shellfish derived Allergy Short of Verified 08/26/19 20:25 Breath - Home Medications Medication Instructions Recorded Confirmed Type Anastrozole [Arimidex] 1 mg PO HS 05/29/14 10/24/19 History Pravastatin Sodium 40 mg PO HS 08/30/18 10/24/19 History Omeprazole 20 mg PO QAM 09/02/18 10/24/19 History Sevelamer Carbonate [Renvela] 800 mg PO TID-WM 30 Days #90 tab 09/05/18 Rx Acetaminophen With Codeine 1 - 2 tab Q4HR PRN 10/24/19 10/24/19 History [Tylenol with Codeine #3] Carvedilol 12.5 mg BID 10/24/19 10/24/19 History Lactulose 10/24/19 History Lisinopril 10/24/19 History Ondansetron [Zofran ODT] 4 mg PO Q8H PRN 10/24/19 10/24/19 History Potassium Chloride 20 meq PO QAM 10/24/19 10/24/19 History - History PMHx: ESRD on PD, HTN, HLD, diastolic HF, anemia, GERD, HLD, hx of breast cancer PSHx: L nephrectomy, parathyroidectomy, bilateral mastectomy, mara, R hip replacement, hysterectomy, appendectomy, R arm port, PD port FHx: non-contributory Social: denies smoking, alcohol, drugs - Review of Systems General: reports: weight/appetite/sleep changes (decreased appetite). denies: fever/chills Eyes: denies: eye pain, vision changes ENT: denies: nasal congestion, rhinorrhea Respiratory: denies: cough, shortness of breath Cardiovascular: denies: chest pain, edema Gastrointestinal: reports: nausea, vomiting, diarrhea. denies: abdominal pain Genitourinary: denies: incontinence, dysuria Skin: reports: other (chronic pruritic rash on arms). denies: lesions Musculoskeletal: denies: stiffness, swelling Neurological: reports: weakness. denies: syncope Psychological: denies: anxiety, depression - Vital signs BP: [129/49] HR: [65] RR: [16] Tmax: [97.6F] Pox: [100]% on [RA] Wt: [77.2kg] - Physical Exam Constitutional: NAD, awake, alert and oriented HEENT: normocephalic and atraumatic, MMM Neck: supple, FROM Chest: no-tender to palpation Heart: RRR, normal S1/S2 Lungs: CTAB, no respiratory distress Abdomen: soft, non-tender, bowel sounds present Musculoskeletal: normal tone, ROM grossly normal Neurological: no focal deficit, normal sensation Skin: no jaundice, other (scaly patchy erythematous rash on bilateral arms) Heme/Lymphatic: no unusual bruising or bleeding, no purpura Psychiatric: normal mood and affect, other (poor judgment) FMR H&P: Results - Labs Lab results: Na 137 K 3.7 Cl 99 CO2 27 Calcium 8.6 BUN 23 Cr 8.1 GFR 5.8 Albumin 2.4 Bili 0.5 Alk phos 67 ALT 16 AST 19 Lipase 26 WBC 15.5 Hgb 11.8 Hct 37% Platelets 222 Lactic 1.7 - Radiology Interpretation CT scan - abdomen Status: report reviewed by me (R pleural effusion. Hiatal hernia. Significant free fluid within the abdomen/pelvis. Possible punctate focus of free intraperitoneal air. Free intraperitoneal air and fluid within the abdomen and pelvis may be on the basis of peritoneal dialysis. However, the volume of the ascites may be greater than that expected for peritoneal dialysis and clinical correlation is essential) FMR H&P: A/P - Problem List (1) Nausea & vomiting Current Visit: Yes Status: Acute Code(s): R11.2 - NAUSEA WITH VOMITING, UNSPECIFIED (2) ESRD (end stage renal disease) Current Visit: No Status: Acute Code(s): N18.6 - END STAGE RENAL DISEASE (3) HLD (hyperlipidemia) Current Visit: No Status: Acute Code(s): E78.5 - HYPERLIPIDEMIA, UNSPECIFIED (4) HTN (hypertension) Current Visit: No Status: Acute Code(s): I10 - ESSENTIAL (PRIMARY) HYPERTENSION (5) HX: breast cancer Current Visit: No Status: Acute Code(s): Z85.3 - PERSONAL HISTORY OF MALIGNANT NEOPLASM OF BREAST - Plan Patient is a 79F with a PMHx of ESRD on PD, HTN, anemia, GERD, HLD, hx of breast cancer admitted for: #Nausea and vomiting #ESRD on PD #Concern for SBP -patient has been on PD for past year, compliant per son; fluid intermittently cloudy; son reports they have been adjusting the types of bags used during PD due to patient's symptoms -Dr. Ponce made aware of the patient in the ED, plans to have nursing perform PD for the patient and culture the fluid; appreciate recs -received 1g rocephin 10/22 @ 1500, will continue third gen cephalosporin after culture has been drawn from peritoneal fluid -zofran prn for nausea -continue home meds #Diastolic HF -continue home meds: carvedilol 12.5mg BID -will clarify if patient is taking lisinopril as this is in her pharmacy records but was not on her last discharge summary #HTN -continue home meds #HLD -continue home meds: pravastatin #GERD -continue home meds:omeprazole #Hx of breast cancer -continue home anastazole #Anemia, likely due to ESRD/chronic disease -H/H 11.8/37% -MCV 97.4 Diet: Renal high protein due to peritoneal dialysis DVTppx: SCDs Dispo: medical obs for peritoneal dialysis and fluid culture; will continue abx and can de-escalate/discontinue pending culture results Code: Full PCP: Yang FMR H&P: Upper Level - Pertinent history 79 year old female presents from [place] as transfer with concern for SBP noted by outside ED given a several week history N/V/D. Denies abdominal pain, fever, chills. Patient on peritoneal dialysis for several years. She was on HD previously. Patient had fistulas in place which kept clotting, hence the move to peritoneal dialysis. She has no other concerns at this time. Patient has long standing history of HTN. Patient also with history of nephrectomy. - Pertinent findings General: Alert and oriented x3. NAD. HEENT: MMM. Card: Resp: Abdomen: Ext: - Plan Date/Time: 10/23/191919 I, Tyra Conde, have evaluated this patient and agree with findings/plan as outlined by internal specialist resident. Pertinent changes/additions are listed here. Intractable N/V/D - Concern for SBP - Nephrology consulted; appreciate recs - Peritoneal fluid has been collected for evaluation - UA >50 squamous cells, indicating likely contamination. Turbid with 3+ bacteria - Urine culture pending - Zofran PRN - Stool studies pending - Review of pharmacy med rec shows recent rx for lactulose, which could be contributing to diarrhea if patient has been taking this medication Concern for SBP - Peritoneal fluid studies pending - Patient on ceftriaxone 2g IV - Nephrology consulted; appreciate recommendations Possible UTI - UA suspicious for contamination >50 squamous cells and 3+ bacteria - Patient on ceftriaxone for suspected SBP - Urine culture pending ESRD on peritoneal dialysis - History of nephrectomy - History of HTN HTN - Continue to monitor - Continue carvedilol DVT PPX: SCD's Code Status: Full Dispo: Obs on medical. Anticipate LOS <48 hours. Addendum - Attending - Attending Attestation Date/Time: 10/23/19 2199 I personally evaluated the patient and discussed the management with Dr. Simental. I agree with the History, Examination, Assessment and Plan documented above with any addition or exceptions noted below. admitted for concern for bacterial peritonitis related to PD. Awaiting fluid aspiration for GS and culture. Will continue abx once PD fluid specimen collected. Patient received rocephin 1g in [place]. exam unremarkable.
[2019-10-23] MEDS ORDERED: Ondansetron ODT 4 MG TAB SL PRN (21:38)
[2019-10-23] MEDS ORDERED: Ondansetron PF 4 MG/2 ML Vial IVP PRN ×2 (21:38→21:59)
[2019-10-23] MEDS ORDERED: Acetaminophen 325 MG TAB PO PRN (21:38)
[2019-10-23 22:43] VITALS: BMI 29.0
[2019-10-24] MEDS: cefTRIAXone\\ROCEPHIN 2 GM in Sodium Chloride 0.9% 100 ML IVPB SCH (00:19)
[2019-10-24 01:47] LABS: RBC Count-Automated (BF) 143 /cumm; WBC/Nucleated-Auto (BF) 10 uL
[2019-10-24 01:48] LABS: BF Color Colorless; Body Fluid Source Peritoneal Fluid; Clarity Clear (Clear); Tube # EDTA
[2019-10-24 07:15] LABS: #Eosinphils 0.4 thou/uL (0.0-0.7); #Lymphocytes 1.7 thou/uL (1.20-3.40); #Monocytes 1.3 thou/uL (0.11-0.59); #Neutrophils 10.7 thou/uL (1.40-6.50); %Basophils 0.1 % (0.0-1.0); %Eosinophils 2.6 % (0.0-10.0); %Lymphocytes 11.8 % (21.0-51.0); %Monocytes 9.2 % (0.0-10.0); %Neutrophils 76.3 % (42.0-75.0); Hemoglobin 12.1 g/dL (12.0-16.0); Mean Corpuscular HGB CONC 31.4 g/dL (32.0-36.0); Mean Corpuscular Hemoglobin 31.8 pg (27.0-31.0); Mean Platelet Volume 7.8 fL (7.4-10.4); Platelet Count 216 thou/uL (130-400)
[2019-10-24 07:33] LABS: Anion Gap 16 mmol/L (10-20); BUN (Urea Nitrogen) 25 mg/dL (9.8-20.1); Calc. Creatinine Clearance 6 mL/min (70-130); Calcium 8.6 mg/dL (7.8-10.44); Carbon Dioxide 24 mmol/L (23-31); Chloride 101 mmol/L (98-107); Estimated GFR-MDRD 5; Glucose 101 mg/dL (83-110); Potassium 3.3 mmol/L (3.5-5.1); Sodium 138 mmol/L (136-145)
--- NOTE | 2019-10-24 07:34 | PDOC.FM ---
- Subjective Subjective: Patient was resting comfortably in her bed at the time of evaluation, and denied any acute overnight events. - Objective Vital Signs & Weight: Vital Signs (12 hours) Temp Pulse Resp BP BP Pulse Ox 10/24/19 04:35 98.5 F 71 20 131/51 L 94 L 10/24/19 00:07 98.1 F 84 18 141/54 H 96 10/23/19 22:10 99 10/23/19 21:20 98.2 F 65 18 145/55 H 99 Weight Weight 72.1 kg I&O: 10/23/19 10/24/19 10/25/19 06:59 06:59 06:59 Intake Total 290 Balance 290 Result Diagrams: 10/24/19 06:39 10/24/19 06:39 Phys Exam - Physical Examination Constitutional: NAD HEENT: PERRLA, moist MMs, sclera anicteric, oral pharynx no lesions Neck: no nodes, supple, full ROM Respiratory: no wheezing, no rales, no rhonchi, clear to auscultation bilateral Cardiovascular: RRR, no significant murmur, no rub Gastrointestinal: soft, non-tender, no distention, positive bowel sounds Musculoskeletal: no edema, pulses present Neurological: non-focal, moves all 4 limbs Lymphatic: no nodes Psychiatric: normal affect Dx/Plan (1) Nausea & vomiting Code(s): R11.2 - NAUSEA WITH VOMITING, UNSPECIFIED Status: Acute (2) Abnormal peritoneal fluid Code(s): R85.9 - UNSP ABNORMAL FINDING IN SPECIMENS FROM DGSTV ORG/ABD CAV Status: Acute (3) Dyspnea Code(s): R06.00 - DYSPNEA, UNSPECIFIED Status: Acute (4) ESRD (end stage renal disease) Code(s): N18.6 - END STAGE RENAL DISEASE Status: Acute (5) HLD (hyperlipidemia) Code(s): E78.5 - HYPERLIPIDEMIA, UNSPECIFIED Status: Acute (6) HTN (hypertension) Code(s): I10 - ESSENTIAL (PRIMARY) HYPERTENSION Status: Acute (7) Hx of coronary artery disease Code(s): Z86.79 - PERSONAL HISTORY OF OTHER DISEASES OF THE CIRCULATORY SYSTEM Status: Acute - Plan Plan: Patient is an 79 y/o female with a PMH of ESRD requiring Peritoneal Dialysis, HTN, Anemia, GERD, HLD who presents from an outside facility for N/V and suspicion of Spontaneous Bacterial Peritonitis. 1. Nausea/Vomiting -Patient is a poor historian and there are conflicting reports on presence or absence of N/V -Will continue home medication regimen and administer Zofran PRN 2. ESRD on Peritoneal Dialysis, Concern for SBP -Patient has been on PD for ~1Y and compliant with nightly treatment, per son -Peritoneal Fluid has appeared intermittently cloudy and son reports adjusting bag/equipment based on patient's symptoms -Nephrology (Dr. Ponce): Consulted from ED, recommended Peritoneal Fluid Cx, recs appreciated -s/p Ceftriaxone 1g at [facility] ED on 10/22 @ 1500 - will continue @ 2 g Q24H -Peritoneal Fluid Studies: Pending, results appear initially benign 3. HFpEF -Patient does not appear fluid overloaded at this time -Will continue home Carvedilol regimen -Will clarify if patient is taking Lisinopril with patient's son, as this is in her pharmacy records but was not present on her last DC summary 4. HTN -Will continue home medication regimen 5. HLD -Will continue home medication regimen 6. GERD -Will continue home medication regimen 7. Hx of Breast Cancer -Will continue home medication regimen 8. Anemia -Likely 2/2 ESRD and Chronic Disease -H.8 / Hct: 37 -MCV: 97.4 PCP: Yang Code: Full Diet: Renal, High Protein VTE PPx: SCDs Dispo: Patient is currently stable and admitted to the Medical Floor for observation and further evaluation of Suspected Bacterial Peritonitis. Will continue ABx as per above and observe closely, await Cx - plan for de- escalation if results are unremarkable. Coordinate with Nephrology as needed. Expected LOS < 24H Addendum - Attending - Attending Attestation Date/Time: 10/24/19 1207 I personally evaluated the patient and discussed the management with Dr. Felder I agree with the History, Examination, Assessment and Plan documented above with any addition or exceptions noted below. 79 yo F admitted for evaluation of SBP. Transudative fluid noted from peritoneal sample, unlikely to be infectious at this point. Patient tolerated breakfast this morning. Patient AxOx3 at this time. Anticipate d/c home later this afternoon. RA Quezada
--- NOTE | 2019-10-24 09:08 | PRG ---
DATE OF SERVICE: 10/24/2019 SUBJECTIVE: Ms. 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 She was admitted due to decreased energy level and generalized malaise. She has also had nausea and vomiting. However, on close questioning with the patient, she has not had nausea and vomiting for the last few days. In addition, there was a concern for peritonitis. PD fluid was examined and it was clear. There were no white cells making peritonitis less likely. Of interest, this patient has been having some degree of confusion and forgetfulness. CT scan of the brain would be most appropriate if this has not been done recently. Other consideration is an MRI. No other complaints. No chest pain or shortness of breath. She tolerated peritoneal dialysis last night. OBJECTIVE: VITAL SIGNS: Blood pressure is noted at 166/63, heart rate 71, respiratory rate 20, temperature 98.8, and pulse ox 99%. GENERAL: Noted to be awake, alert, comfortable, not in overt distress. SKIN: Adequate turgor. HEENT: Pinkish conjunctivae. Anicteric sclerae. NECK: No neck mass. No carotid bruits. No JVD. CHEST: No deformities. LUNGS: Clear breath sounds. HEART: Normal sinus rhythm. No murmur. No gallops. No rubs. ABDOMEN: Globular, soft, nontender. No masses. EXTREMITIES: No edema. No deformities. MEDICATIONS: Medications of October 24, 2019, were reviewed. LABORATORY DATA: Laboratories of October 24, 2019; white count 14, hemoglobin 12.1. Sodium 138, potassium 3.3, chloride 101, carbon dioxide 24, BUN 25, creatinine 8.1, calcium 8.6. Troponin I 0.145. PD fluid was colorless, white cell was 10, no abnormal cells. IMAGING STUDIES: Previous CT scan of the brain on October 16, 2019, showed no acute intracranial abnormality. There was a lacunar fracture in left basal ganglia and chronic small vessel ischemic changes and cerebral volume loss. ASSESSMENT/PLAN: 1. Nausea and vomiting-the patient being treated for an empiric urinary tract infection. The patient is currently on IV ceftriaxone. 2. Hypokalemia p.r.n. potassium replacement. 3. End-stage renal disease, stable. We will continue current CCPD regimen. Fluid removal only as tolerated. 4. Confusion. This maybe an onset of early dementia. The last CT scan done early this month showed no acute intracranial abnormality. 5. Chronic small-vessel disease was noted at that time. For the moment, agree with current management. Job ID: [id number]
[2019-10-24] MEDS: Potassium Chloride 20 MEQ TAB PO SCH (09:23)
[2019-10-24] MEDS: Sevelamer Carbonate 800 MG TAB PO SCH ×3 (09:24→17:34)
[2019-10-24] MEDS: Carvedilol 25 MG TAB PO SCH ×2 (09:24→20:47)
[2019-10-24 09:47] LABS: Fluid, Amylase Less than 5 U/L (Not Available); Fluid, Glucose 178 mg/dL (Not Available); Fluid, LDH Less than 25 U/L (Not Available); Fluid, Protein Less than 1.0 g/dL (Not Available)
[2019-10-24] MEDS ORDERED: Atorvastatin Calcium 10 MG TAB PO SCH (21:00)
[2019-10-24] MEDS ORDERED: Anastrozole 1 MG TAB PO SCH (21:00)
[2019-10-25] MEDS: cefTRIAXone\\ROCEPHIN 2 GM in Sodium Chloride 0.9% 100 ML IVPB SCH (00:20)
--- NOTE | 2019-10-25 07:33 | PDOC.FM ---
- Subjective Subjective: Patient was resting comfortably in bed, enjoying her breakfast, at the time of evaluation. She denied any acute overnight events. - Objective Vital Signs & Weight: Vital Signs (12 hours) Temp Pulse Resp BP BP Pulse Ox 10/25/19 04:00 97.6 F 74 18 106/65 100 10/25/19 01:10 103/65 10/25/19 00:00 97.7 F 74 18 99/64 97 10/24/19 22:57 98 10/24/19 20:00 97.5 F L 75 18 149/58 H 98 Weight Admit Weight 71.668 kg Weight 72.1 kg I&O: 10/24/19 10/25/19 10/26/19 06:59 06:59 06:59 Intake Total 290 120 Balance 290 120 Result Diagrams: 10/24/19 06:39 10/25/19 06:53 Phys Exam - Physical Examination Constitutional: NAD HEENT: moist MMs, sclera anicteric, oral pharynx no lesions Neck: supple, full ROM Respiratory: no wheezing, no rales, no rhonchi, clear to auscultation bilateral Cardiovascular: RRR, no significant murmur, no rub Gastrointestinal: soft, non-tender, no distention, positive bowel sounds Musculoskeletal: no edema, pulses present Neurological: non-focal, moves all 4 limbs Psychiatric: normal affect Skin: no rash Dx/Plan (1) Nausea & vomiting Code(s): R11.2 - NAUSEA WITH VOMITING, UNSPECIFIED Status: Acute (2) Abnormal peritoneal fluid Code(s): R85.9 - UNSP ABNORMAL FINDING IN SPECIMENS FROM DGSTV ORG/ABD CAV Status: Acute (3) Dyspnea Code(s): R06.00 - DYSPNEA, UNSPECIFIED Status: Acute (4) ESRD (end stage renal disease) Code(s): N18.6 - END STAGE RENAL DISEASE Status: Acute (5) HLD (hyperlipidemia) Code(s): E78.5 - HYPERLIPIDEMIA, UNSPECIFIED Status: Acute (6) HTN (hypertension) Code(s): I10 - ESSENTIAL (PRIMARY) HYPERTENSION Status: Acute (7) Hx of coronary artery disease Code(s): Z86.79 - PERSONAL HISTORY OF OTHER DISEASES OF THE CIRCULATORY SYSTEM Status: Acute - Plan Plan: Patient is an 79 y/o female with a PMH of ESRD requiring Peritoneal Dialysis, HTN, Anemia, GERD, HLD who presents from an outside facility for N/V and suspicion of Spontaneous Bacterial Peritonitis. 1. Nausea/Vomiting -Patient is a poor historian and there are conflicting reports on presence or absence of N/V -Will continue home medication regimen and administer Zofran PRN 2. ESRD on Peritoneal Dialysis, Concern for SBP -Patient has been on PD for ~1Y and compliant with nightly treatment, per son -Peritoneal Fluid has appeared intermittently cloudy and son reports adjusting bag/equipment based on patient's symptoms -Nephrology (Dr. Ponce): Consulted from ED, recommended Peritoneal Fluid Cx, recs appreciated -s/p Ceftriaxone [address] [facility] ED on 10/22 @ 1500 - transitioned to 2 g Q24H - will DC as SBP looks appears unlikely -Peritoneal Fluid Studies: WBCs 10 (Benign) 3. HFpEF -Patient does not appear fluid overloaded at this time -Will continue home Carvedilol regimen -Will clarify if patient is taking Lisinopril with patient's son, as this is in her pharmacy records but was not present on her last DC summary 4. HTN -Will continue home medication regimen 5. HLD -Will continue home medication regimen 6. GERD -Will continue home medication regimen 7. Hx of Breast Cancer -Will continue home medication regimen 8. Anemia -Likely 2/2 ESRD and Chronic Disease -H.8 / Hct: 37 -MCV: 97.4 PCP: Yang Code: Full Diet: Renal, High Protein VTE PPx: SCDs Dispo: Patient is currently stable and admitted to the Medical Floor for observation and further evaluation of Suspected Bacterial Peritonitis. Initially intended to DC patient last night but held due to concerns from patient's daughter that patient had worsening weakness. Will consult PT/OT/CM today in order to evaluate and plan for potential transfer to In-Patient Rehab. Will plan to de-escalate ABx today as infection appears unlikely. Coordinate with Nephrology as needed. Expected LOS < 24H Addendum - Attending - Attending Attestation Date/Time: 10/25/19 3181 I personally evaluated the patient and discussed the management with Dr. Felder I agree with the History, Examination, Assessment and Plan documented above with any addition or exceptions noted below. 79 yo F admitted for evaluation of SBP which was negative. Serratia from urine culture in [place], resistant to rocephin, transitioned to levoquin. Tolerated PO up to this morning, one episode of vomiting, no diarrhea. PT/OT eval and awaiting placement at rehab or placement. RA Quezada
[2019-10-25 07:47] LABS: Anion Gap 17 mmol/L (10-20); BUN (Urea Nitrogen) 26 mg/dL (9.8-20.1); Calc. Creatinine Clearance 6 mL/min (70-130); Calcium 8.7 mg/dL (7.8-10.44); Carbon Dioxide 26 mmol/L (23-31); Chloride 100 mmol/L (98-107); Estimated GFR-MDRD 4; Glucose 92 mg/dL (83-110); Potassium 3.7 mmol/L (3.5-5.1); Sodium 139 mmol/L (136-145)
[2019-10-25] MEDS ORDERED: cefTRIAXone\\ROCEPHIN 1 GM in Sodium Chloride 0.9% 100 ML IVPB SCH ×2 (08:00→23:00)
[2019-10-25] MEDS: Sevelamer Carbonate 800 MG TAB PO SCH ×3 (08:18→16:29)
[2019-10-25] MEDS: Potassium Chloride 20 MEQ TAB PO SCH (08:18)
[2019-10-25] MEDS: Carvedilol 25 MG TAB PO SCH (08:18)
--- NOTE | 2019-10-25 08:31 | PRG ---
DATE OF SERVICE: 10/25/2019 SUBJECTIVE: Ms. Canales is an 79-year-old white female with ESRD and was initially seen by the Renal [facility] for her maintenance peritoneal dialysis. She underwent her peritoneal dialysis without any difficulty. Yesterday, she was still having some nausea. This morning, her nausea is much improved. She denies any chest pain or shortness of breath. She did complain of some mild abdominal pain on admission, but the PD fluid was noted to be clear. No evidence of any peritonitis. OBJECTIVE: VITAL SIGNS: Blood pressure is 120/70, heart rate 70, respiratory rate is 18, O2 saturation is 100%, and temperature 97.6. GENERAL: The patient is noted to be awake, alert, comfortable, not in overt distress. SKIN: Adequate turgor. HEENT: She has pinkish conjunctivae. Anicteric sclerae. No neck mass. No carotid bruits. No JVD. CHEST: No deformities. LUNGS: Clear breath sounds. HEART: Normal sinus rhythm. No murmur. No gallops. No rubs. ABDOMEN: Globular, soft, nontender. No masses. EXTREMITIES: No edema. No deformities. MEDICATIONS: Of October 25, 2019, were reviewed. LABORATORY DATA: Laboratories of October 23, 2019: PD fluid was colorless with no white cells. Blood culture was negative. Negative Gram stain. ASSESSMENT AND PLAN: 1. Mild abdominal pain, resolving. No evidence of peritonitis. 2. End-stage renal disease, stable. We will continue current CCPD regimen. Tolerating said treatment. 3. Mildly elevated white count - on empiric IV antibiotics. Overall, agree with current management. Continue supportive care. Leslie Qureshi for nausea. Job ID: [id number]
[2019-10-25] MEDS ORDERED: Hydrocortisone 1% Cream 30 GM TUBE TOP SCH (09:00)
[2019-10-25 11:46] VITALS: TEMP 97.5
[2019-10-25] MEDS ORDERED: Fentanyl 100 MCG/2 ML VIAL ONE (12:28)
[2019-10-25 16:40] VITALS: BP 136/64
[2019-10-25] MEDS ORDERED: cefTRIAXone Sodium 1 MG in Syringe 0 ML IVPB SCH (23:00)
--- NOTE | 2019-10-26 02:20 | DIS ---
DATE OF ADMISSION: 10/23/2019 DATE OF DISCHARGE: 10/25/2019 RESIDENT: Poncho Felder MD ADMITTING ATTENDING: Jarrett Bradshaw MD DISCHARGE ATTENDING: Jim Quezada MD CONSULTS: Champ Blackmon MD, Nephrology. PROCEDURES PERFORMED: None. PRIMARY DIAGNOSIS: Urinary tract infection. SECONDARY DIAGNOSES: Physical deconditioning, intractable nausea, vomiting, and diarrhea. Concern for spontaneous bacterial peritonitis, ruled out. DISCHARGE MEDICATIONS: Levaquin 250 mg p.o. q.2 days for 6 days. DISCONTINUED MEDICATIONS: 1. Anastrozole 1 mg p.o. daily. 2. Atorvastatin 10 mg p.o. daily. 3. Carvedilol 12.5 mg p.o. b.i.d. 4. Ceftriaxone 2 g IV daily. 5. Ceftriaxone 1 g IV push. 6. Hydrocortisone aloe cream. 7. Levaquin 500 mg p.o. x1. 8. Zofran 4 mg IVP q.6 hours p.r.n. 9. Pantoprazole 40 mg p.o. daily. 10. Potassium chloride 20 mEq p.o. daily. 11. Sevelamer carbonate 800 mg p.o. t.i.d. HISTORY OF PRESENT ILLNESS/HOSPITAL COURSE: The patient is an 79-year-old female presents from [place], [place] as a transfer with concern for spontaneous bacterial peritonitis noted by outside ED, given a several week history of nausea, vomiting, and diarrhea. The patient denies abdominal pain, fevers, or chills. The patient is on peritoneal dialysis and has been so for several years for treatment of her end-stage renal disease likely secondary to diabetes type 2. She was on hemodialysis previously, could not tolerate. 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 She had no other concerns at the time of evaluation. The patient had a long-standing history of hypertension and also had a surgical history significant for nephrectomy. Per the ED attending physician, Dr. Ponce was notified from the ED and peritoneal dialysis was initiated in order to obtain peritoneal fluid and obtain a subsequent culture. Upon talking to the patient's son who was present during the initial evaluation by the resident 19, the patient's son states the peritoneal fluid is occasionally cloudy. The patient denies fevers and denies missing peritoneal dialysis on any day. In the ED, she was given Zofran 1 L bolus of normal saline and 1 g of ceftriaxone prior to being transferred to the medical floor. Upon evaluation in the medical floor, the patient had no significant complaints. Further review of her urinary cultures obtained from the outside ED indicated a Serratia species bacterial growth that was treated with Levaquin following discontinuation of IV ceftriaxone due to a low suspicion for spontaneous bacterial peritonitis due to the patient's benign abdominal exam, lack of fever, lack of tachycardia, and analysis of peritoneal fluid that revealed 10 WBCs. The patient's condition was stable and was subsequently prepped for discharge. However, the patient's primary caregivers, her son and daughter did not feel that the patient was safe to return home as the patient is greatly deconditioned. The patient agreed with this and agree to be evaluated by Physical Therapy and Occupational Therapy, where inpatient rehab was recommended. The patient was subsequently prepped for transfer to inpatient rehab facility. Prior to discharge, the patient's vital signs were recorded as temperature 97.5, pulse 74 beats per minute, respirations 18 per minute, oxygen saturation 97% on room air, and blood pressure 136/64. LABORATORY ANALYSIS: Revealed a white blood cell count of 14, hemoglobin of 12.1, hematocrit of 38.5, platelet count of 216. Chem panel revealed sodium 139, potassium 3.7, chloride 100, carbon dioxide 26, anion gap 17, BUN 26, creatinine 8.85 consistent with previous hospital admissions. Glucose 92, calcium 8.7. Peritoneal fluid was found to be colorless, clear, with 10 WBCs, no abnormal cells. DISPOSITION: Stable. DISCHARGE INSTRUCTIONS: 1. Location: Inpatient rehab facility [facility]. 2. Diet: Carbohydrate conscious. 3. Activity: Determinate on initial evaluation by Physical Therapy and Occupational Therapy at inpatient rehab facility. 4. Followup: The patient was encouraged to follow up with her primary care physician in 1 to 2 weeks in order to discuss her most recent hospitalization. Additionally, the patient was encouraged to follow up with her welder production line gas, Dr. Kolby Ponce, in 14 days in order to discuss her most recent hospitalization. Job ID: [id number]
== END 2019-10-25 19:24 ==
LOC: ERS 16:36 → T4-A 18:05
PROVIDERS: ADMIT Family Medicine; ATTEND Family Medicine
DX: R11.2 Nausea with vomiting, unspecified (principal); R19.7 Diarrhea, unspecified; R53.81 Other malaise; N39.0 Urinary tract infection, site not specified; B96.89 Other specified bacterial agents as the cause of diseases classified elsewhere; R10.9 Unspecified abdominal pain; N13.721 Vesicoureteral-reflux with reflux nephropathy without hydroureter, unilateral; N18.6 End stage renal disease; D63.1 Anemia in chronic kidney disease; I11.0 Hypertensive heart disease with heart failure; I50.30 Unspecified diastolic (congestive) heart failure; E78.5 Hyperlipidemia, unspecified; K21.9 Gastro-esophageal reflux disease without esophagitis; R85.9 Unspecified abnormal finding in specimens from digestive organs and abdominal cavity; I25.10 Atherosclerotic heart disease of native coronary artery without angina pectoris; E87.6 Hypokalemia; R41.0 Disorientation, unspecified; R06.00 Dyspnea, unspecified; Z85.3 Personal history of malignant neoplasm of breast; Z79.811 Long term (current) use of aromatase inhibitors; Z79.899 Other long term (current) drug therapy; Z91.013 Allergy to seafood; Z91.041 Radiographic dye allergy status; Z90.5 Acquired absence of kidney; Z99.2 Dependence on renal dialysis
CPT/HCPCS: 80048 ×2; 82042; 82150; 82945; 83615; 84157; 85025; 87070; 87205; 89051; 96365; 96366; 96375; 97110; 97139 ×3; 99285; G0378 ×4; 36415; 85060; 90945; G0257; J0696; J2405; J3010; J3490